=== PATIENT | male | born 1985 | race Hispanic/Latino ===

== ENCOUNTER 2017-01-07 05:14 | Emergency (ER) | payer BC, MEDICAID, OTHER ==
[~2017-01-07] VITALS: Ht 172.7 cm; Wt 90.7 kg
[~2017-01-07 05:14] MED LIST: ATIVAN1 MG ORAL; LORAZEPAM0.5 MG ORAL; NAPROSYN500 M1 ORAL; NEXIUM20 M1 ORAL; NEXIUM40 MG ORAL; OMEPRAZOLE20 M3 ORAL; XANAX0.25 MG ORAL
[2017-01-07] MEDS ORDERED: NKM (05:27)
[2017-01-07 05:30] VITALS: BP 114/81
--- NOTE | 2017-01-07 05:35 | Emergency Room Report ---
History of Present Illness General Chief Complaint: Eye Problems Source: Patient Present Illness HPI 31-year-old male no significant past medical history presenting with right eye tearing, redness, irritation. Complains of slight pain. No blurry vision. No thick purulent drainage. Denies any eye trauma denies any foreign body sensation in eye Allergies: Coded Allergies: No Known Allergies (Unverified , 12/11/12) Patient History Past Medical History: see triage record Past Surgical History: none Pertinent Family History: none Reviewed Nursing Documentation: PMH: Agreed, PSxH: Agreed Nursing Documentation-PMH Past Medical History: No Stated History Review of Systems All Other Systems: negative except mentioned in HPI Physical Exam Vital Signs Date Time Temp Pulse Resp B/P (MAP) Pulse Ox O2 Delivery O2 Flow Rate FiO2 01/07/17 05:22 97.5 69 18 114/81 96 Room Air Sp02 EP Interpretation: reviewed, normal General Appearance: normal inspection, well appearing, no apparent distress, alert, GCS 15, non-toxic Head: normocephalic, atraumatic Eyes: right eye other - Chemosis, scleral injection, no purulent drainage no foreign body, bilateral eye PERRL, bilateral eye EOMI ENT: normal ENT inspection, normal pharynx, normal voice, moist mucus membranes Neck: normal inspection, full range of motion, supple Respiratory: normal inspection, lungs clear, normal breath sounds, no respiratory distress, no retraction, no wheezing, speaking full sentences, chest symmetrical Cardiovascular #1: normal inspection, regular rate, rhythm, no edema, normal capillary refill Cardiovascular #2: 2+ radial (R), 2+ radial (L) Gastrointestinal: normal inspection, non tender, soft, non-distended, no guarding Genitourinary: no CVA tenderness Musculoskeletal: normal inspection, back normal, normal range of motion, non- tender Neurologic: normal inspection, alert, oriented x3, responsive, motor strength/ tone normal, sensory intact, normal gait, speech normal Psychiatric: normal inspection, judgement/insight normal, memory normal Skin: normal inspection, normal color, no rash, warm/dry, well hydrated, normal turgor Medical Decision Making Diagnostic Impression: Primary Impression: Viral conjunctivitis of right eye ER Course 31-year-old male with right eye redness, tearing DDX: Likely viral conjunctivitis Plan: None in emergency room Disposition: Patient is to be discharged to home. Patient is instructed to follow up with their primary care doctor within 5 days. Strict return precautions discussed with patient such as fever, chills, worsening/severe pain, nausea, vomiting, which may indicate severe illness. Patient verbalizes understanding and agrees with plan. Please note that this Emergency Department Report was dictated using [employer]ment[employer] tester technology software, occasionally this can lead to erroneous entry secondary to interpretation by the dictation equipment Last Vital Signs Date Time Temp Pulse Resp B/P (MAP) Pulse Ox O2 Delivery O2 Flow Rate FiO2 01/07/17 05:22 97.5 69 18 114/81 96 Room Air Disposition: HOME, SELF-CARE Condition: Stable Patient Instructions: Viral Conjunctivitis Marbella Mata M.D. Jan 07, 2017 05:35
[2017-01-07 05:38] VITALS: BP 114/81
== END 2017-01-07 05:38 | disposition home or self-care (01) ==
LOC: MERGE 05:26 → EMR 05:26
DX: B30.9 Viral conjunctivitis, unspecified (principal)
CPT/HCPCS: 99282

== ENCOUNTER 2018-10-02 18:32 | Inpatient (IN) | payer MEDICAID, MEDICARE, OTHER ==
[~2018-10-02] VITALS: Ht 170.2 cm; Wt 101.2 kg
[~2018-10-02 18:32] MED LIST changes: +NKM
[2018-10-02] MEDS ORDERED: Mylanta II UD 30ml ORAL ONE (18:45)
--- NOTE | 2018-10-02 18:45 | NUR ---
ED Nurse Note: Patient walked into ED c/o abdominal pain on the epigastric area with nausea since 09/30/18. Patient is alert awake x4 ambulatory, breathing unlabored and even. patient reports it is nothing like his GERD pain.
--- NOTE | 2018-10-02 18:53 | Emergency Room Report ---
History of Present Illness General Chief Complaint: Abdominal Pain Source: Medical Record Present Illness HPI 32-year-old male presents with right lower quadrant pain, periumbilical pain x2 days, nausea, no vomiting, no diarrhea, no dysuria, no fever/chills, he only endorses abdominal pain while eating, severity is moderate, no alleviating factors, pain is described as sharp/achy. Patient presents for evaluation Allergies: Coded Allergies: No Known Allergies (Unverified , 12/02/12) Patient History Past Medical History: see triage record Social History: Reports: smoking Reviewed Nursing Documentation: PMH: Agreed; PSxH: Agreed Nursing Documentation-PMH Past Medical History: No History, Except For Hx Gastrointestinal Problems: Yes - GERD Review of Systems Gastrointestinal: Reports: abdominal pain, nausea; Denies: diarrhea, vomiting All Other Systems: negative except mentioned in HPI Physical Exam Vital Signs Date Time Temp Pulse Resp B/P (MAP) Pulse Ox O2 Delivery O2 Flow Rate FiO2 10/02/18 18:39 98.2 58 18 135/83 (100) 95 Room Air Sp02 EP Interpretation: reviewed, normal General Appearance: alert, moderate distress Head: normocephalic, atraumatic Eyes: bilateral eye PERRL, bilateral eye EOMI ENT: uvula midline, moist mucus membranes Neck: supple, thyroid normal, supple/symm/no masses Respiratory: lungs clear, no respiratory distress, no retraction, no accessory muscle use Cardiovascular #1: normal peripheral pulses, regular rate, rhythm, no edema, no gallop, no murmur Gastrointestinal: no guarding, no rebound, tenderness - rlq McBurney's, tenderness to palpation moderate Musculoskeletal: normal inspection Neurologic: alert, oriented x3 Psychiatric: mood/affect normal Skin: no rash, warm/dry Medical Decision Making Diagnostic Impression: Primary Impression: Appendicitis, acute ER Course 32-year-old male presents with right lower quadrant pain concerning for appendicitis, will start antibiotics, surgeon notified Dr. Elizabeth He is unstable for transport, already dilated appendix, risk of perforation is high, with free fluid in pelvis spoke with transfer center, Dr. Salgado agrees with plan patient should stay admitted. Abx started, fluid started, patient will be admitted to Dr. Larkin 10:11pm Pain control with morphine and zofran Laboratory Tests Test 10/02/18 18:55 10/02/18 19:45 White Blood Count 15.8 K/UL (4.8-10.8) H Red Blood Count 4.89 M/UL (4.70-6.10) Hemoglobin 15.3 G/DL (14.2-18.0) Hematocrit 43.4 % (42.0-52.0) Mean Corpuscular Volume 89 FL (80-99) Mean Corpuscular Hemoglobin 31.2 PG (27.0-31.0) H Mean Corpuscular Hemoglobin Concent 35.2 G/DL (32.0-36.0) Red Cell Distribution Width 10.2 % (11.6-14.8) L Platelet Count 206 K/UL (150-450) Mean Platelet Volume 9.4 FL (6.5-10.1) Neutrophils (%) (Auto) 81.6 % (45.0-75.0) H Lymphocytes (%) (Auto) 11.3 % (20.0-45.0) L Monocytes (%) (Auto) 6.1 % (1.0-10.0) Eosinophils (%) (Auto) 0.4 % (0.0-3.0) Basophils (%) (Auto) 0.6 % (0.0-2.0) Sodium Level 136 MMOL/L (136-145) Potassium Level 3.3 MMOL/L (3.5-5.1) L Chloride Level 102 MMOL/L (98-107) Carbon Dioxide Level 25 MMOL/L (21-32) Anion Gap 9 mmol/L (5-15) Blood Urea Nitrogen 8 mg/dL (7-18) Creatinine 0.9 MG/DL (0.55-1.30) Estimate Glomerular Filtration Rate > 60 mL/min (>60) Glucose Level 116 MG/DL (74-106) H Calcium Level 8.5 MG/DL (8.5-10.1) Total Bilirubin 1.7 MG/DL (0.2-1.0) H Direct Bilirubin 0.2 MG/DL (0.0-0.3) Aspartate Amino Transferase (AST) 14 U/L (15-37) L Alanine Aminotransferase (ALT) 27 U/L (12-78) Alkaline Phosphatase 107 U/L (46-116) Total Protein 7.1 G/DL (6.4-8.2) Albumin 3.7 G/DL (3.4-5.0) Globulin 3.4 g/dL Albumin/Globulin Ratio 1.1 (1.0-2.7) Lipase 62 U/L (73-393) L Urine Color Brown Urine Appearance Clear Urine pH 5 (4.5-8.0) Urine Specific [place] 1.025 (1.005-1.035) Urine Protein 1+ (NEGATIVE) H Urine Glucose (UA) Negative (NEGATIVE) Urine Ketones 4+ (NEGATIVE) H Urine Blood Negative (NEGATIVE) Urine Nitrite Negative (NEGATIVE) Urine Bilirubin Negative (NEGATIVE) Urine Urobilinogen Normal MG/DL (0.0-1.0) Urine Leukocyte Esterase 1+ (NEGATIVE) H Urine RBC 0 /HPF (0 - 0) Urine WBC 0-2 /HPF (0 - 0) Urine Squamous Epithelial Cells None /LPF (NONE/OCC) Urine Bacteria Occasional /HPF (NONE) Urine Mucus Few /LPF (NONE/OCC) H CT/MRI/US Diagnostic Results CT/MRI/US Diagnostic Results : Imaging Test Ordered: CT Abdomen and Pelvis Impression acute appendicitis, 18 mm dilatation with moderate inflammation, mild pelvic free fluid Last Vital Signs Date Time Temp Pulse Resp B/P (MAP) Pulse Ox O2 Delivery O2 Flow Rate FiO2 10/02/18 18:39 98.2 58 18 135/83 (100) 95 Room Air Disposition: ADMITTED INPATIENT Condition: Stable Evan Domínguez MD Oct 02, 2018 18:53
[2018-10-02] MEDS ORDERED: Isovue-300 100ml vial INJ PRN (19:00)
--- NOTE | 2018-10-02 19:04 | NUR ---
HAND-OFF: Report given to DEE DALTON.
[2018-10-02 19:16] VITALS: BP 135/83
[2018-10-02 19:27] LABS: BASOPHILS % (AUTO) 0.6 % (0.0-2.0); EOSINOPHILS % (AUTO) 0.4 % (0.0-3.0); HEMATOCRIT 43.4 % (42.0-52.0); HEMOGLOBIN 15.3 G/DL (14.2-18.0); LYMPHOCYTES % (AUTO) 11.3 % (20.0-45.0); MEAN CORPUSCULAR VOLUME 89 FL (80-99); MONOCYTES % (AUTO) 6.1 % (1.0-10.0); NEUTROPHILS % (AUTO) 81.6 % (45.0-75.0); PLATELET COUNT 206 K/UL (150-450); RED BLOOD COUNT 4.89 M/UL (4.70-6.10); RED CELL DISTRIBUTION WIDTH 10.2 % (11.6-14.8); WHITE BLOOD COUNT 15.8 K/UL (4.8-10.8)
[2018-10-02 19:40] LABS: ANION GAP 9 mmol/L (5-15); BLOOD UREA NITROGEN 8 mg/dL (7-18); CALCIUM 8.5 MG/DL (8.5-10.1); CARBON DIOXIDE 25 MMOL/L (21-32); CHLORIDE 102 MMOL/L (98-107); CREATININE 0.9 MG/DL (0.55-1.30); POTASSIUM 3.3 MMOL/L (3.5-5.1); SODIUM 136 MMOL/L (136-145)
[2018-10-02 19:51] LABS: ALANINE AMINOTRANSFERASE 27 U/L (12-78); ALBUMIN 3.7 G/DL (3.4-5.0); ALBUMIN/GLOBULIN RATIO 1.1 (1.0-2.7); ALKALINE PHOSPHATASE 107 U/L (46-116); ASPARTATE AMINO TRANSFERASE 14 U/L (15-37); BILIRUBIN,TOTAL 1.7 MG/DL (0.2-1.0)
[2018-10-02 19:52] LABS: BILIRUBIN,DIRECT 0.2 MG/DL (0.0-0.3)
[2018-10-02 20:07] LABS: APPEARANCE,URINE CLEAR; BILIRUBIN, URINE NEGATIVE (NEGATIVE); COLOR,URINE BROWN; GLUCOSE, URINE (UA) NEGATIVE (NEGATIVE); KETONES,URINE 4+ (NEGATIVE); LEUKOCYTE ESTERASE ,URINE 1+ (NEGATIVE); NITRITE,URINE NEGATIVE (NEGATIVE); PH,URINE 5 (4.5-8.0); PROTEIN,URINE 1+ (NEGATIVE); UROBILINOGEN,URINE NORMAL MG/DL (0.0-1.0)
[2018-10-02 21:15] VITALS: BP 135/83
[2018-10-02] MEDS ORDERED: Piperacillin/Tazobactam 3.375 GM in NS 110 ML IVPB ONE (21:30)
[2018-10-02] MEDS ORDERED: Morphine Sulfate 4mg/ml Inj (IV USE ONLY) IVP ONE (22:15)
[2018-10-02 23:23] VITALS: BP 140/78
--- NOTE | 2018-10-02 23:23 | NUR ---
ED Nurse Note: Patient was admited to [facility] due to appendicitis. AAO x4, VSS at this time, skin is warm to touch. Patient was transfered to the unit via gurney, with all belongings.
[2018-10-03] VITALS (12 sets, daily range): BP systolic 97–128; BP diastolic 57–80
--- NOTE | 2018-10-03 | NUR ---
NURSE NOTES: Received report from KRYSTLE Pina. Patient transferred to be in room 408-2. Patient is awake, alert and verbally responsive. Able to make needs known. Respiration is even and unlabored . Skin is intact, warm and dry to touch. Abdomen is soft. IV site noted. Call light is at bedside. Will continue plan of care.
[2018-10-03] MEDS ORDERED: ALPRAZOLAM0.5 MG PO (00:17)
[2018-10-03] MEDS: Morphine Sulfate 2mg/ml Inj(IV/IM USE ONLY) IVP PRN ×3 (01:30→08:49)
[2018-10-03 06:42] LABS: HEMATOCRIT 44.9 % (42.0-52.0); HEMOGLOBIN 15.1 G/DL (14.2-18.0); MEAN CORPUSCULAR VOLUME 93 FL (80-99); PLATELET COUNT 200 K/UL (150-450); RED BLOOD COUNT 4.82 M/UL (4.70-6.10); RED CELL DISTRIBUTION WIDTH 10.9 % (11.6-14.8); WHITE BLOOD COUNT 16.9 K/UL (4.8-10.8)
[2018-10-03 06:49] LABS: ANION GAP 6 mmol/L (5-15); BLOOD UREA NITROGEN 6 mg/dL (7-18); CALCIUM 8.3 MG/DL (8.5-10.1); CARBON DIOXIDE 29 MMOL/L (21-32); CHLORIDE 102 MMOL/L (98-107); POTASSIUM 3.8 MMOL/L (3.5-5.1); SODIUM 137 MMOL/L (136-145)
--- NOTE | 2018-10-03 07:21 | NUR ---
HAND-OFF: Report given to KRYSTLE Echeverria.
--- NOTE | 2018-10-03 08:00 | NUR ---
NURSE NOTES: Received report form Will Moore pt a/a/o x 4 laying with no signs of distress or other issues at this time. pt's NPO due to this morning surgery. call light within reach, bed in lowest position. side rales up x2.
[2018-10-03] MEDS: Piperacillin/Tazobactam 3.375 GM in NS 110 ML IVPB SCH ×3 (08:45→22:05)
--- NOTE | 2018-10-03 09:19 | NUR ---
*-* INSURANCE *-* ALL CLINICALS AND REVIEWS HAVE BEEN FAXED TO: [employer] COORDINATOR: VANESSA P:[phone] F: [phone] REF# [id number]
[2018-10-03] MEDS ORDERED: Succinylcholine 20mg/ml 10ml vial ONE (10:10)
[2018-10-03] MEDS ORDERED: Zemuron 50mg/5ml Inj IV ONE (10:10)
--- NOTE | 2018-10-03 10:14 | Diagnostic Imaging Report ---
Indication: Abdominal pain Technique: Continuous helical transaxial imaging of the abdomen and pelvis was obtained from the lung bases to the pubic symphysis during intravenous contrast administration. Coronal 2-D reformats were also obtained. Study obtained in a Siemens sensation [address] Automatic Exposure Control was utilized. Total Dose length Product (DLP): 1017.[address] Dose Index Volume (CTDIvol): 16.45 mGy Comparison: None Findings: Minimal posterior basilar atelectasis demonstrated. Kidneys are unremarkable. There is no hydronephrosis. The gallbladder, liver and spleen, pancreas appear normal. There is no adrenal mass. Bowel gas pattern is nonobstructive. There is a moderate amount of soft tissue stranding of fat surrounding an enlarged appendix in the right lower quadrant of the abdomen just anterior to the right psoas muscle. The appendix measures up to 1.8 cm in diameter and shows ill-definition of the wall with some thickening and enhancement. There is an appendicolith at the base of the appendix. Inflammation tracks along the right hemipelvis. There is a trace amount of pelvic ascites present which is likely associated. IMPRESSION: Acute appendicitis as described above. No drainable abscess. Small hiatal hernia. Mild posterior basilar atelectasis. Critical value communication. Findings were conveyed to the emergency room Department at 21:16, 10/02/2018. The CT scanner at [facility] is accredited by the [employer] and the scans are performed using dose optimization techniques as appropriate to a performed exam including Automatic Exposure control.
--- NOTE | 2018-10-03 10:15 | History and Physical Report ---
DATE OF ADMISSION: 10/02/2018 REASON FOR ADMISSION: 1. Abdominal pain. 2. Appendicitis. HISTORY OF PRESENT ILLNESS: The patient is a pleasant 32-year-old gentleman who presented to the emergency room overnight complaining of right lower quadrant pain, periumbilical in nature for the last two days. No nausea, vomiting, or diarrhea. Just feeling slightly ill with abdominal pain with decreased appetite. He was noted to have acute appendicitis with 18 mm dilatation with and mild pelvic free fluid. As such, he was admitted for IV antibiotics and possible appendectomy. PAST MEDICAL HISTORY: 1. Anxiety. 2. GERD. PAST SURGICAL HISTORY: None. ALLERGIES: No known drug allergies. FAMILY HISTORY: Noncontributory. REVIEW OF SYSTEMS: NEUROLOGIC: The patient denies headache, change in vision, syncope, or presyncopal episodes. CARDIOVASCULAR: No current chest pain, palpitations, or angina. PULMONARY: No difficulty breathing, cough, or sputum. GASTROINTESTINAL/GENITOURINARY: The patient was having some abdominal pain. No nausea, vomiting, or diarrhea. ENDOCRINOLOGY: No night sweats, fevers, or chills. MUSCULOSKELETAL: The patient is feeling weak, tired, and fatigued. PHYSICAL EXAMINATION: VITAL SIGNS: Blood pressure 112/70, respiratory rate 16, pulse 52, and temperature 98.2. 96% oxygen saturation on room air. GENERAL: The patient is awake and alert, not in distress. HEENT: Extraocular muscles intact. No lymphadenopathy. Oropharyngeal mucosa is clear and dry. CARDIOVASCULAR: S1, S2. No rubs or gallops. PULMONARY: Clear to auscultation bilaterally. No rales, rhonchi or wheezes. ABDOMEN: Mild tenderness in the right lower quadrant with fair bowel sounds. EXTREMITIES: No edema. LABORATORY DATA: Labs dated 10/03/2018, sodium 137, potassium 3.8, creatinine 1. Glucose 146. Calcium 8.3. Lipase 62. White cell count 16.9, hemoglobin 15.1. ASSESSMENT AND PLAN: 1. Acute appendicitis. At this time, we will continue Zosyn and await appendectomy. Defer management to General Surgery. 2. Dehydration. We will continue IV fluids. 3. DVT prophylaxis with SCDs. Melvin Ford MD DR: YANE JOB#: [id number] CC:
[2018-10-03] MEDS ORDERED: fentaNYL 100 mcg/2 mL IV ONE (10:58)
[2018-10-03] MEDS ORDERED: Midazolam 2mg/2ml Inj ONE (10:58)
[2018-10-03] MEDS ORDERED: Lidocaine 1% MPF 10mg/ml 5ml ONE (10:59)
[2018-10-03] MEDS ORDERED: Propofol 200mg/20ml IV ONE (10:59)
--- NOTE | 2018-10-03 11:24 | Diagnostic Imaging Report ---
Indication: Chest pain Comparison: 04/26/2008 A single view chest radiograph was obtained. Findings: Cardiomediastinal appearance is within normal limits for age. The lungs are clear. Pulmonary vascularity is appropriate. The diaphragmatic contour is smooth and costophrenic angles are sharp. No pleural effusions are identified. The bones are unremarkable. Impression: No acute findings
[2018-10-03] MEDS ORDERED: NS Irrig 1000ml ONE (12:00)
[2018-10-03] MEDS ORDERED: Sterile Water Irrig 1000ml IRRIG ONE (12:00)
[2018-10-03] MEDS ORDERED: LR 1000ml ONE (12:00)
[2018-10-03] MEDS ORDERED: Glycopyrrolate 0.2mg/ml 1ml Vial ONE (12:07)
[2018-10-03] MEDS ORDERED: Neostigmine 1mg/ml 10ml Inj ONE (12:07)
[2018-10-03] MEDS ORDERED: Sodium Chloride 10ml vial INJ ONE (12:07)
[2018-10-03] MEDS ORDERED: Morphine Sulfate 10mg/ml Inj ONE (12:07)
--- NOTE | 2018-10-03 12:14 | Pre-Procedure Note/Attestation ---
Pre-Procedure Note/Attestation Complete Prior to Procedure Planned Procedure: not applicable Procedure Narrative: laparoscopic possible open appendectomy Indications for Procedure Pre-Operative Diagnosis: acute appendicitis Attestation I attest that I discussed the nature of the procedure; its benefits; risks and complications; and alternatives (and the risks and benefits of such alternatives ), prior to the procedure, with the patient (or the patient's legal outside industrial sales representative). I attest that, if there was a reasonable possibility of needing a blood transfusion, the patient (or the patient's legal outside industrial sales representative) was given the [facility] standardized written summary, pursuant to the [place] Blood Safety Act ([place] Health and Safety Code # 1645, as amended). I attest that I re-evaluated the patient just prior to the surgery and that there has been no change in the patient's H&P, except as documented below: Salazar Elizabeth Oct 03, 2018 12:14
--- NOTE | 2018-10-03 12:16 | Consultation ---
History of Present Illness General Date patient seen: Oct 03, 2018 Reason for Hospitalization: Abdominal Pain Present Illness HPI This is a 32-year-old male who presented to [facility] emergency department complaining of worsening right lower quadrant abdominal pain for 3 days. Patient states pain initially began on Tuesday as very mild discomfort and is since become focal right lower quadrant sharp pain. Pain associated with nausea and emesis. In emergency department identified to have a leukocytosis and CT scan consistent with acute appendicitis. Surgery called to evaluate. Patient seen,, patient evaluated, chart reviewed. Allergies: Coded Allergies: No Known Allergies (Unverified , 12/02/12) Medication History Scheduled Alprazolam* (Xanax*), 0.25 MG PO BID, (Reported) Esomeprazole Magnesium (Nexium), 40 MG ORAL DAILY Esomeprazole Magnesium (Nexium), 20 MG ORAL DAILY, (Reported) Naproxen* (Naprosyn*), 500 MG ORAL TWICE A DAY No Known Medications* (NKM - No Known Medications*), 0 ., (Reported) Omeprazole (Omeprazole), 20 MG ORAL DAILY Scheduled PRN Lorazepam* (Ativan*), 1 MG ORAL THREE TIMES A DAY PRN for For Anxiety Lorazepam* (Lorazepam*), 0.5 MG ORAL DAILY PRN for For Anxiety, (Reported) Patient History History Provided By: Patient Healthcare decision maker Resuscitation status Full Code Advanced Directive on File Past Medical/Surgical History Past Medical/Surgical History: (1) Anxiety attack (2) Acute gastritis (3) foreign body sensation (4) chocking episode, resolved (5) Hematuria (6) Gastritis (7) Panic attack (8) ETOH abuse (9) Viral conjunctivitis of right eye (10) Appendicitis, acute Review of Systems Review of Symptoms General ROS: no weight loss or fever Psychological ROS: no depression or mood changes, no memory loss Ophthalmic ROS: no visual changes or eye irritation ENT ROS: no nasal congestion, hearing loss, dizziness Allergy and Immunology ROS: no allergic symptoms or urticaria Hematological and Lymphatic ROS: no swollen glands, unusual bleeding or bruising Endocrine ROS: no polyuria, polydipsia, weight changes, temperature intolerance Respiratory ROS: no cough, shortness of breath, or wheezing Cardiovascular ROS: no chest pain or dyspnea on exertion Gastrointestinal ROS: denies abdominal pain, no bright red blood in stool. Musculoskeletal ROS: no myalgias or arthralgias Neurological ROS: no TIA or stroke symptoms Dermatological ROS: no new or changing skin lesions, rashes or pruritis Physical Exam Physical Exam General appearance: alert, cooperative, no distress, appears stated age Head: Normocephalic, without obvious abnormality, atraumatic Eyes: conjunctivae/corneas clear. PERRL, EOM's intact. Fundi benign Throat: Lips, mucosa, and tongue normal. Teeth and gums normal Neck: supple, symmetrical, trachea midline, no adenopathy, thyroid: not enlarged, symmetric, no tenderness/mass/nodules, no carotid bruit and no JVD Lungs: clear to auscultation bilaterally Heart: regular rate and rhythm, S1, S2 normal, no murmur, click, rub or gallop Abdomen: soft, RLQ tender. Bowel sounds normal. No masses, no organomegaly Extremities: extremities normal, atraumatic, no cyanosis or edema Pulses: 2+ and symmetric Skin: Skin color, texture, turgor normal. No rashes or lesions Neurologic: Grossly normal Last 24 Hour Vital Signs Date Time Temp Pulse Resp B/P (MAP) Pulse Ox O2 Delivery O2 Flow Rate FiO2 10/03/18 09:19 98.2 10/03/18 08:00 98.3 58 18 122/62 (82) 96 10/03/18 04:00 98.2 52 16 112/70 (84) 96 10/03/18 00:13 Room Air 10/03/18 00:00 97.6 55 16 123/76 (92) 95 10/02/18 23:23 98.2 87 16 135/83 96 Room Air 10/02/18 23:23 98.2 87 18 140/78 98 Room Air 10/02/18 23:04 98.2 10/02/18 21:15 98.2 87 16 135/83 96 Room Air 10/02/18 19:16 98.2 89 18 135/83 95 Room Air 10/02/18 19:02 58 18 Room Air 10/02/18 18:39 98.2 58 18 135/83 (100) 95 Room Air Intake and Output 10/02/18 10/03/18 19:00 07:00 Intake Total 375 ml Balance 375 ml Intake IV Total 375 ml # Voids 3 Laboratory Tests Test 10/02/18 18:55 10/02/18 19:45 10/03/18 05:00 White Blood Count 15.8 K/UL (4.8-10.8) H 16.9 K/UL (4.8-10.8) H Red Blood Count 4.89 M/UL (4.70-6.10) 4.82 M/UL (4.70-6.10) Hemoglobin 15.3 G/DL (14.2-18.0) 15.1 G/DL (14.2-18.0) Hematocrit 43.4 % (42.0-52.0) 44.9 % (42.0-52.0) Mean Corpuscular Volume 89 FL (80-99) 93 FL (80-99) Mean Corpuscular Hemoglobin 31.2 PG (27.0-31.0) H 31.3 PG (27.0-31.0) H Mean Corpuscular Hemoglobin Concent 35.2 G/DL (32.0-36.0) 33.6 G/DL (32.0-36.0) Red Cell Distribution Width 10.2 % (11.6-14.8) L 10.9 % (11.6-14.8) L Platelet Count 206 K/UL (150-450) 200 K/UL (150-450) Mean Platelet Volume 9.4 FL (6.5-10.1) 9.0 FL (6.5-10.1) Neutrophils (%) (Auto) 81.6 % (45.0-75.0) H % (45.0-75.0) Lymphocytes (%) (Auto) 11.3 % (20.0-45.0) L % (20.0-45.0) Monocytes (%) (Auto) 6.1 % (1.0-10.0) % (1.0-10.0) Eosinophils (%) (Auto) 0.4 % (0.0-3.0) % (0.0-3.0) Basophils (%) (Auto) 0.6 % (0.0-2.0) % (0.0-2.0) Prothrombin Time 10.9 SEC (9.30-11.50) Prothromb Time International Ratio 1.0 (0.9-1.1) Activated Partial Thromboplast Time 33 SEC (23-33) Sodium Level 136 MMOL/L (136-145) 137 MMOL/L (136-145) Potassium Level 3.3 MMOL/L (3.5-5.1) L 3.8 MMOL/L (3.5-5.1) Chloride Level 102 MMOL/L (98-107) 102 MMOL/L (98-107) Carbon Dioxide Level 25 MMOL/L (21-32) 29 MMOL/L (21-32) Anion Gap 9 mmol/L (5-15) 6 mmol/L (5-15) Blood Urea Nitrogen 8 mg/dL (7-18) 6 mg/dL (7-18) L Creatinine 0.9 MG/DL (0.55-1.30) 1.0 MG/DL (0.55-1.30) Estimat Glomerular Filtration Rate > 60 mL/min (>60) > 60 mL/min (>60) Glucose Level 116 MG/DL (74-106) H 146 MG/DL (74-106) H Calcium Level 8.5 MG/DL (8.5-10.1) 8.3 MG/DL (8.5-10.1) L Total Bilirubin 1.7 MG/DL (0.2-1.0) H Direct Bilirubin 0.2 MG/DL (0.0-0.3) Aspartate Amino Transf (AST/SGOT) 14 U/L (15-37) L Alanine Aminotransferase (ALT/SGPT) 27 U/L (12-78) Alkaline Phosphatase 107 U/L (46-116) Total Protein 7.1 G/DL (6.4-8.2) Albumin 3.7 G/DL (3.4-5.0) Globulin 3.4 g/dL Albumin/Globulin Ratio 1.1 (1.0-2.7) Lipase 62 U/L (73-393) L Urine Color Brown Urine Appearance Clear Urine pH 5 (4.5-8.0) Urine Specific [place] 1.025 (1.005-1.035) Urine Protein 1+ (NEGATIVE) H Urine Glucose (UA) Negative (NEGATIVE) Urine Ketones 4+ (NEGATIVE) H Urine Blood Negative (NEGATIVE) Urine Nitrite Negative (NEGATIVE) Urine Bilirubin Negative (NEGATIVE) Urine Urobilinogen Normal MG/DL (0.0-1.0) Urine Leukocyte Esterase 1+ (NEGATIVE) H Urine RBC 0 /HPF (0 - 0) Urine WBC 0-2 /HPF (0 - 0) Urine Squamous Epithelial Cells None /LPF (NONE/OCC) Urine Bacteria Occasional /HPF (NONE) Urine Mucus Few /LPF (NONE/OCC) H Differential Total Cells Counted 100 Neutrophils % (Manual) 92 % (45-75) H Lymphocytes % (Manual) 2 % (20-45) L Monocytes % (Manual) 5 % (1-10) Eosinophils % (Manual) 0 % (0-3) Basophils % (Manual) 0 % (0-2) Band Neutrophils 1 % (0-8) Platelet Estimate Adequate Platelet Morphology Normal Height (Feet): 5 Height (Inches): 7.00 Weight (Pounds): 224 Medications Current Medications Medications (Trade) Dose Ordered Sig/Li Route PRN Reason Start Time Stop Time Status Last Admin Dose Admin Dextrose (Dextrose 50%) 25 ml Q30M PRN IV Hypoglycemia 10/02/18 22:15 11/01/18 22:14 Dextrose (Dextrose 50%) 50 ml Q30M PRN IV Hypoglycemia 10/02/18 22:15 11/01/18 22:14 Dextrose/ Electrolytes 1,000 ml @ 75 mls/hr [id number] IV 10/02/18 23:13 11/01/18 23:12 10/03/18 00:32 Morphine Sulfate (Morphine Sulfate) 1 mg Q3HR PRN IVP For Pain 10/02/18 22:15 10/09/18 22:14 10/03/18 08:49 Ondansetron HCl (Zofran) 4 mg Q6H PRN IVP Nausea & Vomiting 10/02/18 22:15 11/01/18 22:14 10/03/18 08:49 Piperacillin Sod/ Tazobactam Sod 3.375 gm/Sodium Chloride 110 ml @ 27.5 mls/hr EVERY 8 HOURS IVPB 10/03/18 08:00 10/08/18 07:59 10/03/18 08:45 Assessment/Plan Problem List: (1) Appendicitis, acute Assessment & Plan: 32-year-old male with acute appendicitis. Afebrile, Stable , leukocytosis. CT scan with acute appendicitis consistent. N.p.o., IV fluids , IV antibiotics. Consent. 2 OR today for lap scopic versus possible open appendectomy ICD Codes: K35.80 - Unspecified acute appendicitis SNOMED: [id number] Salazar Elizabeth Oct 03, 2018 12:16
[2018-10-03] MEDS ORDERED: Surgicel 4in x 8in TOPIC ONE (12:45)
[2018-10-03] MEDS ORDERED: LR 1000ml 1,000 ML IVLG SCH (13:10)
--- NOTE | 2018-10-03 13:10 | Anethesia Preoperative Eval ---
Anesthesia Pre-op PMH/ROS General Date of Evaluation: Oct 03, 2018 Time of Evaluation: 11:50 Anesthesiologist: Lee ASA Score: ASA 2 Mallampati Score Class I : Soft palate, uvula, fauces, pillars visible Class II: Soft palate, uvula, fauces visible Class III: Soft palate, base of uvula visible Class IV: Only hard plate visible Mallampati Classification: Class III Surgeon: Mara Diagnosis: Acute appedicitis Surgical Procedure: Laparoscopic appendectomy Anesthesia History: none Social History: alcohol use - h/o heavy abuse Family History: no anesthesia problems Allergies: Coded Allergies: No Known Allergies (Unverified , 12/02/12) Medications: see eMAR Patient NPO?: Yes NPO Date: Oct 02, 2018 NPO Time: 1200 Past Medical History Cardiovascular: Denies: HTN, CAD, NC, valve dz, arrhythmia, other Pulmonary: Denies: asthma, COPD, ERNA, other Gastrointestinal/Genitourinary: Reports: GERD; Denies: CRI, ESRD, other Neurologic/Psychiatric: Denies: dementia, CVA, depression/anxiety, TIA, other Endocrine: Denies: DM, hypothyroidism, steroids, other HEENT: Denies: cataract (L), cataract (R), glaucoma, TUSCARORA (L), TUSCARORA (R), other Hematology/Immune: Denies: anemia, DVT, bleeding disorder, other Musculoskeletal/Integumentary: Denies: OA, RA, DJD, DDD, edema, other Other: obesity PMH Narrative: admitted for acute abdominal pain - appendicitis scheduled for Sx PSxH Narrative: none Anesthesia Pre-op Phys. Exam Physician Exam Last Vital Signs Date Time Temp Pulse Resp B/P (MAP) Pulse Ox O2 Delivery O2 Flow Rate FiO2 10/03/18 09:19 98.2 10/03/18 08:00 58 18 122/62 (82) 96 10/03/18 00:13 Room Air Constitutional: NAD Neurologic: CN 2-12 intact Cardiovascular: RRR, no M/R/G Respiratory: CTA Gastrointestinal: other - tender on palpation Airway Exam Mallampati Score: Class III MO: limited Neck: short ROM: full Teeth: intact Dentures: no upper, no lower Anesthesia Pre-op A/P Labs Hematology Test 10/02/18 18:55 10/03/18 05:00 White Blood Count 15.8 K/UL (4.8-10.8) H 16.9 K/UL (4.8-10.8) H Red Blood Count 4.89 M/UL (4.70-6.10) 4.82 M/UL (4.70-6.10) Hemoglobin 15.3 G/DL (14.2-18.0) 15.1 G/DL (14.2-18.0) Hematocrit 43.4 % (42.0-52.0) 44.9 % (42.0-52.0) Mean Corpuscular Volume 89 FL (80-99) 93 FL (80-99) Mean Corpuscular Hemoglobin 31.2 PG (27.0-31.0) H 31.3 PG (27.0-31.0) H Mean Corpuscular Hemoglobin Concent 35.2 G/DL (32.0-36.0) 33.6 G/DL (32.0-36.0) Red Cell Distribution Width 10.2 % (11.6-14.8) L 10.9 % (11.6-14.8) L Platelet Count 206 K/UL (150-450) 200 K/UL (150-450) Mean Platelet Volume 9.4 FL (6.5-10.1) 9.0 FL (6.5-10.1) Neutrophils (%) (Auto) 81.6 % (45.0-75.0) H % (45.0-75.0) Lymphocytes (%) (Auto) 11.3 % (20.0-45.0) L % (20.0-45.0) Monocytes (%) (Auto) 6.1 % (1.0-10.0) % (1.0-10.0) Eosinophils (%) (Auto) 0.4 % (0.0-3.0) % (0.0-3.0) Basophils (%) (Auto) 0.6 % (0.0-2.0) % (0.0-2.0) Differential Total Cells Counted 100 Neutrophils % (Manual) 92 % (45-75) H Lymphocytes % (Manual) 2 % (20-45) L Monocytes % (Manual) 5 % (1-10) Eosinophils % (Manual) 0 % (0-3) Basophils % (Manual) 0 % (0-2) Band Neutrophils 1 % (0-8) Platelet Estimate Adequate Platelet Morphology Normal Coagulation Test 10/02/18 18:55 Prothrombin Time 10.9 SEC (9.30-11.50) Prothromb Time International Ratio 1.0 (0.9-1.1) Activated Partial Thromboplast Time 33 SEC (23-33) Chemistry Test 10/02/18 18:55 10/03/18 05:00 Sodium Level 136 MMOL/L (136-145) 137 MMOL/L (136-145) Potassium Level 3.3 MMOL/L (3.5-5.1) L 3.8 MMOL/L (3.5-5.1) Chloride Level 102 MMOL/L (98-107) 102 MMOL/L (98-107) Carbon Dioxide Level 25 MMOL/L (21-32) 29 MMOL/L (21-32) Anion Gap 9 mmol/L (5-15) 6 mmol/L (5-15) Blood Urea Nitrogen 8 mg/dL (7-18) 6 mg/dL (7-18) L Creatinine 0.9 MG/DL (0.55-1.30) 1.0 MG/DL (0.55-1.30) Estimat Glomerular Filtration Rate > 60 mL/min (>60) > 60 mL/min (>60) Glucose Level 116 MG/DL (74-106) H 146 MG/DL (74-106) H Calcium Level 8.5 MG/DL (8.5-10.1) 8.3 MG/DL (8.5-10.1) L Total Bilirubin 1.7 MG/DL (0.2-1.0) H Direct Bilirubin 0.2 MG/DL (0.0-0.3) Aspartate Amino Transf (AST/SGOT) 14 U/L (15-37) L Alanine Aminotransferase (ALT/SGPT) 27 U/L (12-78) Alkaline Phosphatase 107 U/L (46-116) Total Protein 7.1 G/DL (6.4-8.2) Albumin 3.7 G/DL (3.4-5.0) Globulin 3.4 g/dL Albumin/Globulin Ratio 1.1 (1.0-2.7) Lipase 62 U/L (73-393) L Risk Assessment & Plan Assessment: ASA 2E Plan: GA with ETT Status Change Before Surgery: No Pre-Antibiotics Drug: as scheduled Omi Howard MD Oct 03, 2018 13:10
[2018-10-03] MEDS ORDERED: Hydromorphone 0.5mg/0.5ml inj IVP PRN ×2 (13:15→14:00)
[2018-10-03] MEDS ORDERED: Meperidine 50mg/ml Inj(FOR RIGORS ONLY) IV PRN (13:15)
[2018-10-03] MEDS ORDERED: Midazolam 2mg/2ml Inj IVP PRN (13:15)
[2018-10-03] MEDS ORDERED: Ketorolac 30mg Inj IV PRN (13:15)
[2018-10-03] MEDS ORDERED: DiphenhydrAMINE 50mg/ml Inj IVP PRN (13:15)
[2018-10-03] MEDS ORDERED: Metoclopramide 10mg/2ml Inj IVP PRN ×2 (13:15→14:00)
--- NOTE | 2018-10-03 13:52 | Brief Operative Note ---
Immediate Post Operative Note Operative Note Pre-op Diagnosis: acute appendicitis Procedure: laparoscopic appendectomy Post-op Diagnosis: acute necrotic appendicitis Surgeon: isatu Anesthesiologist: sherita Anesthesia: general, local Specimen: yes Complications: none Condition: stable Fluids: see records Estimated Blood Loss: volume - 25 Drains: none Implant(s) used?: No Salazar Elizabeth Oct 03, 2018 13:52
[2018-10-03] MEDS ORDERED: HYDROmorphone 1mg/ml Carpuject IVP PRN (14:00)
[2018-10-03] MEDS ORDERED: Sennosides 8.6mg tab ORAL PRN (14:00)
[2018-10-03] MEDS ORDERED: Milk of Magnesia 30ml Ud ORAL PRN (14:00)
--- NOTE | 2018-10-03 14:04 | Immediate Post-Op Evaluation ---
Immediate Post-Op Evalulation Immediate Post-Op Evalulation Procedure: Laparoscopic appendectomy Date of Evaluation: Oct 03, 2018 Time of Evaluation: 14:03 IV Fluids: 800 Blood Products: none Estimated Blood Loss: 50 Urinary Output: none Blood Pressure Systolic: 123 Blood Pressure Diastolic: 84 Pulse Rate: 86 Respiratory Rate: 22 O2 Sat by Pulse Oximetry: 98 Temperature (Fahrenheit): 97.8 Pain Score (1-10): 2 Nausea: No Vomiting: No Complications none Patient Status: reacts, patent, extubated, none Hydration Status: adequate Omi Howard MD Oct 03, 2018 14:04
--- NOTE | 2018-10-03 15:00 | NUR ---
NURSE NOTES: Received report from Simran RN, pt a/a/o x4 laying in bed with no signs of distress or other issues. pain 0/10. surgical incisions dry and intact. IV right AC gauge#20 running LR@100ml/hr. call light within reach. bed in lowest position. side rales up x2. I will f/u as needed.
--- NOTE | 2018-10-03 16:19 | NUR ---
CASE MANAGEMENT:REVIEW 32 YR OLD MALE PRESENTED TO OUR ER CC: ABDOMINAL PAIN W/NAUSEA SINCE TUESDAY SI: ACUTE APPENDICITIS 98.2 58 18 135/83 95% ON RA WBC+15.8 IS: IV ZOFRAN GI COCKTAIL 1L NS BOLUS IV ZOSYN CT ABD/PELVIS : TO MED/SURG UNIT 3 [facility] 10/03/18 SI: ACUTE NECROTIC APPENDICITIS 97.4 68 16 98/59 96% ON 3L/NC WBC+16.9 IS: TO SURGERY: LAPAROSCOPIC APPENDECTOMY IV MORPHINE Q3HRS PRN IV ZOSYN Q8HRS IVF@75/HR : MED/SURG STATUS DCP: FROM HOME INTERQUAL CRITERIA MET
[2018-10-03] MEDS: Docusate 100mg cap ORAL SCH (18:13)
--- NOTE | 2018-10-03 19:45 | Operative Note - Dictated ---
DATE OF OPERATION: 10/03/2018 PREOPERATIVE DIAGNOSIS: Acute appendicitis. POSTOPERATIVE DIAGNOSIS: Acute necrotic appendicitis. OPERATION PERFORMED: Laparoscopic appendectomy. ATTENDING SURGEON: Salazar Elizabeth M.D. GREENSKEEPER HEAD: None. ANESTHESIOLOGIST: Omi Howard M.D. 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 ESTIMATED BLOOD LOSS: 25 mL. IV FLUIDS: Please see anesthesia records. COMPLICATIONS: None. DRAINS: None. SPECIMENS: Appendix sent to pathology for review. COUNTS: Sponge and needle count correct x2. WOUND CLASSIFICATION: Class 3. IV ANTIBIOTICS: The patient is on scheduled IV antibiotics of Zosyn. INDICATIONS FOR PROCEDURE: This 32-year-old male presented to the emergency department of [facility] complaining of worsening right lower quadrant abdominal pain with nausea and emesis. The patient had a leukocytosis and CT scan consistent with acute nonperforated appendicitis. Surgery was indicated and recommended. Risks, benefits, and alternatives were discussed with the patient in detail, who expressed understanding and consented for surgery. OPERATIVE NOTE: The patient was taken to the operating room and placed on the operating table in supine position with left arm tucked. All bony prominences well padded. SCDs were placed. Preoperative time-out was taken identifying the patient, procedure, operative staff and surgical staff. General anesthesia was induced and the patient was intubated. The abdomen was clipped, prepped, and draped in standard surgical fashion. A local anesthetic was infiltrated in all skin incision and port sites throughout the procedure for the patient's comfort. An infraumbilical incision was made and carried down to the fascia, which was elevated and incised. Entry into the abdomen was obtained using open Doug technique. A 12 mm Doug trocar was inserted and abdomen was insufflated to 12 to 15 mmHg. Laparoscope was inserted and the abdomen was inspected. There was a fair amount of serous free fluid identified in the abdomen and the right lower quadrant was inflammatory changes identified. Secondary trocars were placed under direct visualization beginning with a left lower quadrant 12 mm trocar followed by a suprapubic 5 mm trocar. No injury from secondary trocar placement noted. The fluid was suctioned approximately 400 to 500 mL of serous fluid was evacuated from the pelvis and abdomen. Following this, the patient was placed in Trendelenburg with left side down. The cecum was identified and the tenia was followed to the confluence where the base of the appendix was noted. The remainder of the appendix identified in the right lower quadrant and the appendix was noted to be clearly nearly if not necrotic. Upon initially grasping any portion of the appendix, there was evacuation of fecal purulent material, approximately 4 mL or 5 mL, which was medially evacuated. The appendix was slowly dissected out as well as thickened hard shortened mesoappendix. In dissecting out the mesoappendix, the appendiceal artery was identified and clipped. Following this, the appendix taken down to the base where the base of the appendix at the cecum was identified. A laparoscopic linear stapler was used and the base of the appendix was divided from the cecum. The appendix was placed in endoscopic retrieval bag. There was a little bit of oozing at the base of the appendix and laparoscopic clips were used to obtain hemostasis. Following this, the base of the appendix and mesoappendix were evaluated and noted to have appropriate clip placements and staple lines were viable and hemostatic. The pelvis and right lower quadrant were irrigated and suctioned with sterile saline. Following this, the remainder of the abdomen was inspected and no other abnormalities were noted, all fluid was suctioned out. The appendix is removed from the umbilical trocar site followed by removal of the trocars. The abdomen was desufflated. The umbilical trocar site fascia was reapproximated using a [id number] #0 Vicryl suture. The remaining skin incisions were cleansed and reapproximated using 4-0 Monocryl subcuticular interrupted sutures. Steri-Strips and benzoin followed by dressings were applied. The patient tolerated the procedure well, was extubated, and taken to the postanesthetic care unit in stable condition. Salazar Elizabeth M.D. DR: ALY JOB#: [id number] CC:
--- NOTE | 2018-10-03 19:52 | NUR ---
HAND-OFF: Report given to Kalpana CBX OPERATOR pt in stable condition.
--- NOTE | 2018-10-03 19:52 | NUR ---
NURSE NOTES:Patient received from MAULIK Muller Patient Laying in bed A/A/OX4. RAC g#20 [id number] kcl 20 meq at 75cc/ hr infusing well. abdominal surgical site with 3 lap site dressing in left side with little stained .Patient denies any pain at this time . no s/s of distress noted . patient uses urinals and voided freely yellow urine . P atient on SCDS in placed . is at bedside .patient tolerated well safety /fall precautions . call light within reach . bed in low position at all times .Bed alarm on .will continue to monitor .
[2018-10-03] MEDS: HYDROcodone/Acetamin 10/325 tab ORAL PRN (20:58)
[2018-10-04] VITALS: BP 107/57
[2018-10-04] MEDS: HYDROcodone/Acetamin 10/325 tab ORAL PRN ×2 (01:25→08:34)
[2018-10-04 04:00] VITALS: BP 108/68
[2018-10-04 05:14] LABS: BASOPHILS % (AUTO) 0.4 % (0.0-2.0); EOSINOPHILS % (AUTO) 0.1 % (0.0-3.0); HEMATOCRIT 43.6 % (42.0-52.0); HEMOGLOBIN 14.5 G/DL (14.2-18.0); LYMPHOCYTES % (AUTO) 9.5 % (20.0-45.0); MEAN CORPUSCULAR VOLUME 94 FL (80-99); MONOCYTES % (AUTO) 8.5 % (1.0-10.0); NEUTROPHILS % (AUTO) 81.5 % (45.0-75.0); PLATELET COUNT 189 K/UL (150-450); RED BLOOD COUNT 4.66 M/UL (4.70-6.10); RED CELL DISTRIBUTION WIDTH 11.1 % (11.6-14.8); WHITE BLOOD COUNT 12.3 K/UL (4.8-10.8)
[2018-10-04] MEDS: Piperacillin/Tazobactam 3.375 GM in NS 110 ML IVPB SCH ×3 (05:32→21:17)
[2018-10-04 05:33] LABS: ANION GAP 4 mmol/L (5-15); BLOOD UREA NITROGEN 9 mg/dL (7-18); CALCIUM 8.2 MG/DL (8.5-10.1); CARBON DIOXIDE 31 MMOL/L (21-32); CHLORIDE 101 MMOL/L (98-107); CREATININE 1.4 MG/DL (0.55-1.30); POTASSIUM 4.3 MMOL/L (3.5-5.1); SODIUM 136 MMOL/L (136-145)
--- NOTE | 2018-10-04 07:20 | NUR ---
HAND-OFF: Report given to chelsey MullerPatient on stable condition
[2018-10-04 08:00] VITALS: BP 97/66
--- NOTE | 2018-10-04 08:00 | NUR ---
NURSE NOTES: Received report from Kalpana DALTON, pt a/a/o x4 laying in bed with no signs of distress or other issues at this time. surgical incisions are stain. IV on the right AC gauge#20 running D5NS+20mEq@75ml/hr. pt is on a clear liquid diet, he stated having some nausea after eating. call light within reach, bed in lowest position. side rales up x2. I will f/u as needed.
[2018-10-04] MEDS: Docusate 100mg cap ORAL SCH ×2 (08:33→17:09)
--- NOTE | 2018-10-04 08:35 | 48 Hour Post Anesthesia Eval ---
Post Anesthesia Evaluation Procedure: Laparoscopic appendectomy Date of Evaluation: Oct 04, 2018 Time of Evaluation: 06:30 Blood Pressure Systolic: 108 0: 68 Pulse Rate: 76 Respiratory Rate: 18 Temperature (Fahrenheit): 98.7 O2 Sat by Pulse Oximetry: 95 Airway: patent Nausea: No Vomiting: No Hydration Status: adequate Cardiopulmonary Status: at baseline Mental Status/LOC: patient returned to baseline Post-Anesthesia Complications: 0 Follow-up care needed: N/A - further care as per primary team Leslie Murphy MD Oct 04, 2018 08:35
--- NOTE | 2018-10-04 08:49 | Nephrology Progress Note ---
Assessment/Plan Assessment/Plan: A/P 1) CHAZ due to AGUSTIN and NSAIDS. Cr 1.4 - IVFs, avoid NSAIDS and Abx for appendicitis 2) Appendicitis, post appy - DC once cleared by surgery 3) Dehydration- IVFs Subjective Date patient seen: Oct 04, 2018 Time patient seen: 08:47 ROS Limited/Unobtainable: No Allergies: Coded Allergies: No Known Allergies (Unverified , 12/02/12) Subjective Patient abdominal pain improved Objective Last 24 Hour Vital Signs Date Time Temp Pulse Resp B/P (MAP) Pulse Ox O2 Delivery O2 Flow Rate FiO2 10/04/18 08:35 76 18 95 10/04/18 08:00 98.9 73 18 97/66 (76) 93 10/04/18 04:00 98.7 76 18 108/68 (81) 95 10/04/18 01:55 98.6 10/04/18 00:00 98.6 74 17 107/57 (74) 95 10/03/18 21:00 Room Air 10/03/18 20:00 99.5 81 18 100/65 (77) 95 10/03/18 16:00 98.2 73 17 102/68 (79) 95 10/03/18 14:56 97.4 68 16 98/59 96 Nasal Cannula 3 10/03/18 14:40 64 17 97/57 96 Nasal Cannula 3 10/03/18 14:30 68 16 99/57 96 Nasal Cannula 3 10/03/18 14:20 72 18 101/62 97 Nasal Cannula 3 10/03/18 14:10 82 20 108/64 99 Nasal Cannula 3 10/03/18 14:05 84 21 113/70 99 Simple Mask 6 10/03/18 14:04 86 22 98 10/03/18 13:58 98.1 79 24 128/80 99 Simple Mask 6 10/03/18 09:19 98.2 10/03/18 09:00 Room Air Intake and Output 10/03/18 10/04/18 19:00 07:00 Intake Total 1750 ml 1552.5 ml Output Total 50 ml Balance 1700 ml 1552.5 ml Intake Oral 800 ml 1080 ml IV Total 950 ml 472.5 ml Output Estimated Blood Loss 50 ml # Voids 5 Laboratory Tests 10/04/18 04:50: White Blood Count 12.3H, Red Blood Count 4.66L, Hemoglobin 14.5, Hematocrit 43.6 , Mean Corpuscular Volume 94, Mean Corpuscular Hemoglobin 31.2H, Mean Corpuscular Hemoglobin Concent 33.4, Red Cell Distribution Width 11.1L, Platelet Count 189, Mean Platelet Volume 8.4, Neutrophils (%) (Auto) 81.5H, Lymphocytes (%) (Auto) 9.5L, Monocytes (%) (Auto) 8.5, Eosinophils (%) (Auto) 0.1, Basophils (%) (Auto) 0.4, Sodium Level 136, Potassium Level 4.3, Chloride Level 101, Carbon Dioxide Level 31, Anion Gap 4L, Blood Urea Nitrogen 9, Creatinine 1.4H, Estimat Glomerular Filtration Rate 58.4, Glucose Level 126H, Calcium Level 8.2L Height (Feet): 5 Height (Inches): 7.00 Weight (Pounds): 223 General Appearance: no apparent distress, alert EENT: normal ENT inspection Neck: normal alignment, supple Cardiovascular: normal rate, regular rhythm Respiratory/Chest: lungs clear, normal breath sounds Abdomen: non tender, soft Edema: no edema noted Arm (L), no edema noted Arm (R), no edema noted Leg (L), no edema noted Leg (R), no edema noted Pedal (L), no edema noted Pedal (R), no edema noted Generalized Melvin Ford MD Oct 04, 2018 08:49
--- NOTE | 2018-10-04 09:00 | NUR ---
PT EVALUATION NOTE Patient seen for initial evaluation, see complete evaluation for details. Patient demonstrates independence with all functional mobility without assistive device. Skilled inpatient PT intervention not warranted, patient discharged from PT. Patient is cleared to ambulate in hallway with nursing supervision, Juwan DALTON notified. Addendum: 10/04/18 at 1037 by RAHAT WHITE PT Amended: Links added.
[2018-10-04 12:00] VITALS: BP 94/62
[2018-10-04] MEDS: HYDROcodone/Acetamin 5/325 tab ORAL PRN (13:04)
--- NOTE | 2018-10-04 13:35 | NUR ---
CASE MANAGEMENT:REVIEW 10/04/18 SI: ACUTE NECROTIC APPENDICITIS...POD #1 S/P LAPAROSCOPIC APPENDECTOMY 98.9 74 17 94/62 97% ON RA WBC+12.3 CR+1.4 IS: IV ZOSYN Q8HRS IVF@75/HR IV MORPHINE Q3HRS PRN IVF@75/HR : MED/SURG STATUS DCP: FROM HOME PLAN: CLEAR LIQUID DIET
--- NOTE | 2018-10-04 14:35 | CDS Physician Query ---
Clarification is required for compliance, coding accuracy, and to reflect severity of illness for this patient Dear Dr. Melvin Ford Date: 10/04/2018 [place] Operator/CDS Name: Maria Luisa Womack Clinical Documentation states: Op note: Acute necrotic appendicitis...appendix was noted to be clearly nearly if not necrotic. Upon initially grasping any portion of the appendix, there was evacuation of fecal purulent material, approximately 4 mL or 5 mL, which was medially evacuated WBC on admission: 15.8 Treatment: IV pip-tazo Please respond to the following question: Is there a diagnosis specific to these symptoms or values? If so please state below. PHYSICIAN RESPONSE: [x] Localized Peritonitis with abscess [] Localized Peritonitis without abscess [] Generalized Peritonitis with abscess [] Generalized Peritonitis without abscess [] Other [x] Clinically Undetermined Present on Admission: [x] Yes [] No [] Clinically Undetermined Physician signature Date Please also document in your Progress Notes and/or Discharge Summary and indicate if the condition was present on admission. MTDD
--- NOTE | 2018-10-04 15:13 | NUR ---
*-* INSURANCE *-* ALL CLINICALS AND REVIEWS HAVE BEEN FAXED TO: [employer] COORDINATOR: VANESSA P:[phone] F: [phone] REF# [id number]
--- NOTE | 2018-10-04 15:25 | Surgery Progress Note ---
Surgery Progress Note Subjective Procedure Performed laparoscopic appendectomy Additional Comments doing well pain incisional ambulatory tolerating diet wbc decreasing Objective Last 24 Hour Vital Signs Date Time Temp Pulse Resp B/P (MAP) Pulse Ox O2 Delivery O2 Flow Rate FiO2 10/04/18 13:34 98.9 10/04/18 12:00 98.9 74 17 94/62 (73) 97 10/04/18 09:04 98.7 10/04/18 09:00 Room Air 10/04/18 08:35 76 18 95 10/04/18 08:00 98.9 73 18 97/66 (76) 93 10/04/18 04:00 98.7 76 18 108/68 (81) 95 10/04/18 00:00 98.6 74 17 107/57 (74) 95 10/03/18 21:00 Room Air 10/03/18 20:00 99.5 81 18 100/65 (77) 95 10/03/18 16:00 98.2 73 17 102/68 (79) 95 I&O Intake and Output 10/03/18 10/04/18 19:00 07:00 Intake Total 1750 ml 1552.5 ml Output Total 50 ml Balance 1700 ml 1552.5 ml Intake Oral 800 ml 1080 ml IV Total 950 ml 472.5 ml Output Estimated Blood Loss 50 ml # Voids 5 Dressing: saturated Wound: clean Drains: none Cardiovascular: RSR Respiratory: clear Abdomen: soft, tenderness - incisional , non-distended, decreased bowel sounds Extremities: no edema, no tenderness, no cyanosis Laboratory Tests Test 10/04/18 04:50 White Blood Count 12.3 K/UL (4.8-10.8) H Red Blood Count 4.66 M/UL (4.70-6.10) L Hemoglobin 14.5 G/DL (14.2-18.0) Hematocrit 43.6 % (42.0-52.0) Mean Corpuscular Volume 94 FL (80-99) Mean Corpuscular Hemoglobin 31.2 PG (27.0-31.0) H Mean Corpuscular Hemoglobin Concent 33.4 G/DL (32.0-36.0) Red Cell Distribution Width 11.1 % (11.6-14.8) L Platelet Count 189 K/UL (150-450) Mean Platelet Volume 8.4 FL (6.5-10.1) Neutrophils (%) (Auto) 81.5 % (45.0-75.0) H Lymphocytes (%) (Auto) 9.5 % (20.0-45.0) L Monocytes (%) (Auto) 8.5 % (1.0-10.0) Eosinophils (%) (Auto) 0.1 % (0.0-3.0) Basophils (%) (Auto) 0.4 % (0.0-2.0) Sodium Level 136 MMOL/L (136-145) Potassium Level 4.3 MMOL/L (3.5-5.1) Chloride Level 101 MMOL/L (98-107) Carbon Dioxide Level 31 MMOL/L (21-32) Anion Gap 4 mmol/L (5-15) L Blood Urea Nitrogen 9 mg/dL (7-18) Creatinine 1.4 MG/DL (0.55-1.30) H Estimat Glomerular Filtration Rate 58.4 mL/min (>60) Glucose Level 126 MG/DL (74-106) H Calcium Level 8.2 MG/DL (8.5-10.1) L Assessment Post-op Diagnosis acute necrotic appendicitis Plan Problems: (1) Appendicitis, acute Assessment & Plan: 32-year-old male with acute appendicitis. s/p lap appy necrotic appendix noted not ready for d/c clears adv as tolerated iv abx AM labs IS ambulate dressings prn thank you Salazar Elizabeth Oct 04, 2018 15:25
[2018-10-04 16:00] VITALS: BP 107/70
--- NOTE | 2018-10-04 19:30 | NUR ---
NURSE NOTES: Received report & pt from KRYSTLE Echeverria. Pt lying in bed, a&ox4, in room air. No s/s of acute distress & c/o 2/10 pain at this time. Surgical dressing x3 C/D/I. IV site intact with IVF running as ordered. Bed in lowest position, call light within reach. Will continue to monitor.
--- NOTE | 2018-10-04 19:45 | NUR ---
HAND-OFF: Report given to Kavitha DALTON, pt in stable condition. - during my shift pt still complain of some nausea but not vomiting.
[2018-10-04 20:00] VITALS: BP 109/64
[2018-10-05] VITALS: BP 110/64
[2018-10-05] MEDS: HYDROcodone/Acetamin 5/325 tab ORAL PRN ×5 (00:54→23:33)
[2018-10-05 04:00] VITALS: BP 113/60
[2018-10-05] MEDS: Piperacillin/Tazobactam 3.375 GM in NS 110 ML IVPB SCH ×3 (05:05→21:34)
[2018-10-05 05:28] LABS: BASOPHILS % (AUTO) 0.3 % (0.0-2.0); EOSINOPHILS % (AUTO) 0.1 % (0.0-3.0); HEMATOCRIT 43.1 % (42.0-52.0); HEMOGLOBIN 14.4 G/DL (14.2-18.0); LYMPHOCYTES % (AUTO) 8.4 % (20.0-45.0); MEAN CORPUSCULAR VOLUME 92 FL (80-99); MONOCYTES % (AUTO) 8.1 % (1.0-10.0); NEUTROPHILS % (AUTO) 83.2 % (45.0-75.0); PLATELET COUNT 218 K/UL (150-450); RED BLOOD COUNT 4.67 M/UL (4.70-6.10); RED CELL DISTRIBUTION WIDTH 10.8 % (11.6-14.8); WHITE BLOOD COUNT 15.2 K/UL (4.8-10.8)
[2018-10-05 05:44] LABS: ANION GAP 5 mmol/L (5-15); BLOOD UREA NITROGEN 8 mg/dL (7-18); CALCIUM 8.5 MG/DL (8.5-10.1); CARBON DIOXIDE 29 MMOL/L (21-32); CHLORIDE 100 MMOL/L (98-107); SODIUM 134 MMOL/L (136-145)
--- NOTE | 2018-10-05 07:12 | NUR ---
HAND-OFF: Report given to KRYSTLE Vallejo. Rounds done. Pt in stable condition.
--- NOTE | 2018-10-05 07:38 | Nephrology Progress Note ---
Assessment/Plan Assessment/Plan: A/P 1) CHAZ due to AGUSTIN and NSAIDS. Resolved. Cr 1 - DC IVFs, avoid NSAIDS 2) Appendicitis, post appy - DC once cleared by surgery - WBC 15 on Abx 3) Dehydration- DC IVFs Subjective Date patient seen: Oct 05, 2018 Time patient seen: 07:37 ROS Limited/Unobtainable: No Allergies: Coded Allergies: No Known Allergies (Unverified , 12/02/12) Subjective Patient abdominal pain improved and he is now eating Objective Last 24 Hour Vital Signs Date Time Temp Pulse Resp B/P (MAP) Pulse Ox O2 Delivery O2 Flow Rate FiO2 10/05/18 04:00 98.7 79 18 113/60 (77) 91 10/05/18 00:00 98.8 82 17 110/64 (79) 92 10/04/18 21:00 Room Air 10/04/18 20:00 98.5 82 17 109/64 (79) 92 10/04/18 16:00 98.0 77 16 107/70 (82) 97 10/04/18 13:34 98.9 10/04/18 12:00 98.9 74 17 94/62 (73) 97 10/04/18 09:04 98.7 10/04/18 09:00 Room Air 10/04/18 08:35 76 18 95 10/04/18 08:00 98.9 73 18 97/66 (76) 93 Intake and Output 10/04/18 10/05/18 19:00 07:00 Intake Total 2352.5 ml 630 ml Balance 2352.5 ml 630 ml Intake Oral 1500 ml 480 ml IV Total 852.5 ml 150 ml # Voids 3 4 Laboratory Tests 10/05/18 04:45: White Blood Count 15.2H, Red Blood Count 4.67L, Hemoglobin 14.4, Hematocrit 43.1 , Mean Corpuscular Volume 92, Mean Corpuscular Hemoglobin 30.9, Mean Corpuscular Hemoglobin Concent 33.5, Red Cell Distribution Width 10.8L, Platelet Count 218, Mean Platelet Volume 8.4, Neutrophils (%) (Auto) 83.2H, Lymphocytes (%) (Auto) 8.4L, Monocytes (%) (Auto) 8.1, Eosinophils (%) (Auto) 0.1, Basophils (%) (Auto) 0.3, Sodium Level 134L, Potassium Level 4.0, Chloride Level 100, Carbon Dioxide Level 29, Anion Gap 5, Blood Urea Nitrogen 8, Creatinine 1.0, Estimat Glomerular Filtration Rate > 60, Glucose Level 111H, Calcium Level 8.5 Height (Feet): 5 Height (Inches): 7.00 Weight (Pounds): 223 General Appearance: no apparent distress, alert EENT: normal ENT inspection Neck: normal alignment, supple Cardiovascular: normal rate, regular rhythm Abdomen: soft, tender Edema: no edema noted Arm (L), no edema noted Arm (R), no edema noted Leg (L), no edema noted Leg (R), no edema noted Pedal (L), no edema noted Pedal (R), no edema noted Generalized Melvin Ford MD Oct 05, 2018 07:38
--- NOTE | 2018-10-05 07:46 | NUR ---
NURSE NOTES: Received report from KRYSTLE Plummer. Rounding done with outgoing nurse. Pt a/o x 4, in bed. No respiratory distress noted. c/o abdominal pain as 310. Rt AC is patent, IV fluid is running. Dressing of belly button area is stain. Bed in lowest position, call light within reach. Will continue to monitor.
[2018-10-05 08:00] VITALS: BP 103/63
[2018-10-05] MEDS: Docusate 100mg cap ORAL SCH ×2 (09:08→17:40)
--- NOTE | 2018-10-05 10:52 | Surgery Progress Note ---
Surgery Progress Note Subjective Procedure Performed laparoscopic appendectomy Additional Comments afebrile, HD stable states mildly better today but still with pain and nausea leukocytosis 15k path with micro perf Objective Last 24 Hour Vital Signs Date Time Temp Pulse Resp B/P (MAP) Pulse Ox O2 Delivery O2 Flow Rate FiO2 10/05/18 08:00 98.0 74 17 103/63 (76) 93 10/05/18 04:00 98.7 79 18 113/60 (77) 91 10/05/18 00:00 98.8 82 17 110/64 (79) 92 10/04/18 21:00 Room Air 10/04/18 20:00 98.5 82 17 109/64 (79) 92 10/04/18 16:00 98.0 77 16 107/70 (82) 97 10/04/18 13:34 98.9 10/04/18 12:00 98.9 74 17 94/62 (73) 97 I&O Intake and Output 10/04/18 10/05/18 19:00 07:00 Intake Total 2352.5 ml 630 ml Balance 2352.5 ml 630 ml Intake Oral 1500 ml 480 ml IV Total 852.5 ml 150 ml # Voids 3 4 Dressing: dry Wound: clean Cardiovascular: RSR Respiratory: clear Abdomen: soft, distended, tenderness, present bowel sounds Extremities: no edema, no tenderness, no cyanosis Laboratory Tests Test 10/05/18 04:45 White Blood Count 15.2 K/UL (4.8-10.8) H Red Blood Count 4.67 M/UL (4.70-6.10) L Hemoglobin 14.4 G/DL (14.2-18.0) Hematocrit 43.1 % (42.0-52.0) Mean Corpuscular Volume 92 FL (80-99) Mean Corpuscular Hemoglobin 30.9 PG (27.0-31.0) Mean Corpuscular Hemoglobin Concent 33.5 G/DL (32.0-36.0) Red Cell Distribution Width 10.8 % (11.6-14.8) L Platelet Count 218 K/UL (150-450) Mean Platelet Volume 8.4 FL (6.5-10.1) Neutrophils (%) (Auto) 83.2 % (45.0-75.0) H Lymphocytes (%) (Auto) 8.4 % (20.0-45.0) L Monocytes (%) (Auto) 8.1 % (1.0-10.0) Eosinophils (%) (Auto) 0.1 % (0.0-3.0) Basophils (%) (Auto) 0.3 % (0.0-2.0) Sodium Level 134 MMOL/L (136-145) L Potassium Level 4.0 MMOL/L (3.5-5.1) Chloride Level 100 MMOL/L (98-107) Carbon Dioxide Level 29 MMOL/L (21-32) Anion Gap 5 mmol/L (5-15) Blood Urea Nitrogen 8 mg/dL (7-18) Creatinine 1.0 MG/DL (0.55-1.30) Estimat Glomerular Filtration Rate > 60 mL/min (>60) Glucose Level 111 MG/DL (74-106) H Calcium Level 8.5 MG/DL (8.5-10.1) Assessment Post-op Diagnosis acute necrotic appendicitis Plan Problems: (1) Appendicitis, acute Assessment & Plan: 32-year-old male with acute appendicitis. s/p lap appy necrotic appendix noted not ready for d/c - wbc elevated path with perf nausea clears adv as tolerated iv abx AM labs IS ambulate dressings prn thank you Salazar Elizabeth Oct 05, 2018 10:52
--- NOTE | 2018-10-05 11:18 | NUR ---
DISCHARGE FOLLOW UP [facility] NURSE VENETIAN BLIND MACHINE OPERATOR, VANESSA, HAS SET UP OUTPATIENT FOLLOW UP POST HOSPITALIZATION APPOINTMENT: Oct @ 3:15 PM AT:[facility] AT [address] [facility] [id number] PER VANESSA PATIENT'S PHYSICIAN IS NOT AVAILABLE AT THE [facility] SITE IF PATIENT CANNOT KEEP THIS APPOINTMENT HE NEEDS TO CALL VANESSA @ T: [phone]
--- NOTE | 2018-10-05 11:23 | NUR ---
CASE MANAGEMENT:REVIEW 10/05/18 SI: ACUTE NECROTIC APPENDICITIS...POD #2 S/P LAPAROSCOPIC APPENDECTOMY 98.0 74 17 103/63 93% ON RA WBC-15.2 IS: IV ZOSYN Q8HRS IVF@75/HR IV MORPHINE Q3HRS PRN COLACE PO BID NORCO PO Q4HRS PRN IV REGLAN Q6HRS PRN : MED/SURG STATUS DCP: FROM HOME PLAN: NOT TOLERATING CLEAR LIQUID DIET DO NOT ADVANCE DIET DISCHARGE PLANNING [facility] NURSE RESOURCE ANALYST, VANESSA, HAS SET UP OUTPATIENT FOLLOW UP POST HOSPITALIZATION APPOINTMENT: Oct @ 3:15 PM AT: [facility] [place] [id number] [place] [id number] PER VANESSA PATIENT'S PHYSICIAN IS NOT AVAILABLE AT THE [facility] SITE IF PATIENT CANNOT KEEP THIS APPOINTMENT HE NEEDS TO CALL VANESSA @ T: [phone]
[2018-10-05 12:00] VITALS: BP 107/65
--- NOTE | 2018-10-05 14:39 | NUR ---
*-* INSURANCE *-* ALL CLINICALS AND REVIEWS HAVE BEEN FAXED TO: [facility] COURTNEY COORDINATOR: VANESSA P:[phone] F: [phone] REF# [id number]
[2018-10-05 16:00] VITALS: BP 109/66
--- NOTE | 2018-10-05 19:37 | NUR ---
HAND-OFF: Report given to KRYSTLE Plummer.
--- NOTE | 2018-10-05 19:38 | NUR ---
NURSE NOTES: Received report & pt from KRYSTLE Vallejo. Pt lying in bed, a&ox4, in room air. No s/s of acute distress & c/o 2/10 pain at this time. Surgical dressing x3 C/D/I. IV site intact with IVF running as ordered. Still no BM per pt. Bed in lowest position, call light within reach. Will continue to monitor.
[2018-10-05 20:00] VITALS: BP 109/60
[2018-10-06] VITALS: BP 103/63
[2018-10-06 04:00] VITALS: BP 106/61
[2018-10-06] MEDS: Piperacillin/Tazobactam 3.375 GM in NS 110 ML IVPB SCH (05:22)
--- NOTE | 2018-10-06 05:26 | NUR ---
NURSE NOTES: Pt states he's passing a little bit of gas. Still no BM. Will continue to monitor.
[2018-10-06 05:45] LABS: BASOPHILS % (AUTO) 0.9 % (0.0-2.0); EOSINOPHILS % (AUTO) 0.3 % (0.0-3.0); HEMOGLOBIN 14.7 G/DL (14.2-18.0); LYMPHOCYTES % (AUTO) 8.6 % (20.0-45.0); MEAN CORPUSCULAR VOLUME 91 FL (80-99); MONOCYTES % (AUTO) 7.8 % (1.0-10.0); NEUTROPHILS % (AUTO) 82.4 % (45.0-75.0); PLATELET COUNT 266 K/UL (150-450); RED BLOOD COUNT 4.72 M/UL (4.70-6.10); RED CELL DISTRIBUTION WIDTH 11.2 % (11.6-14.8); WHITE BLOOD COUNT 14.9 K/UL (4.8-10.8)
--- NOTE | 2018-10-06 07:23 | NUR ---
HAND-OFF: Report given to KRYSTLE Vallejo. Pt in stable condition. Rounds done.
--- NOTE | 2018-10-06 07:53 | NUR ---
NURSE NOTES: Received report from KRYSTLE Plummer. Pt in bed, c/o abdominal pain as 04/16. Dressing is C/D/I. Encouraged pt to eating and ambulating. Will continue to monitor.
[2018-10-06 08:00] VITALS: BP 110/69
[2018-10-06] MEDS: Docusate 100mg cap ORAL SCH (08:12)
[2018-10-06] MEDS: HYDROcodone/Acetamin 5/325 tab ORAL PRN (08:12)
--- NOTE | 2018-10-06 08:44 | Nephrology Progress Note ---
Assessment/Plan Assessment/Plan: A/P 1) CHAZ - Resolved. Cr 1 2) Appendicitis, post appy - DC once cleared by surgery today - WBC improved 3) Dehydration- resolved Subjective Date patient seen: Oct 06, 2018 Time patient seen: 08:43 ROS Limited/Unobtainable: No Allergies: Coded Allergies: No Known Allergies (Unverified , 12/02/12) Subjective Patient eating. Some abdominal pain persists Objective Last 24 Hour Vital Signs Date Time Temp Pulse Resp B/P (MAP) Pulse Ox O2 Delivery O2 Flow Rate FiO2 10/06/18 04:00 98.6 80 16 106/61 (76) 93 10/06/18 00:00 97.7 72 18 103/63 (76) 93 10/05/18 21:00 Room Air 10/05/18 20:00 98.9 75 18 109/60 (76) 94 10/05/18 16:00 98.5 78 18 109/66 (80) 93 10/05/18 12:00 98.2 72 17 107/65 (79) 95 10/05/18 09:00 Room Air Intake and Output 10/05/18 10/06/18 19:00 07:00 Intake Total 110.0 ml 700 ml Balance 110.0 ml 700 ml Intake Oral 700 ml IV Total 110.0 ml # Voids 1 Laboratory Tests 10/06/18 05:00: White Blood Count 14.9H, Red Blood Count 4.72, Hemoglobin 14.7, Hematocrit 43.0 , Mean Corpuscular Volume 91, Mean Corpuscular Hemoglobin 31.1H, Mean Corpuscular Hemoglobin Concent 34.2, Red Cell Distribution Width 11.2L, Platelet Count 266, Mean Platelet Volume 7.7, Neutrophils (%) (Auto) 82.4H, Lymphocytes (%) (Auto) 8.6L, Monocytes (%) (Auto) 7.8, Eosinophils (%) (Auto) 0.3, Basophils (%) (Auto) 0.9 Height (Feet): 5 Height (Inches): 7.00 Weight (Pounds): 223 General Appearance: no apparent distress EENT: normal ENT inspection Neck: normal alignment, supple Cardiovascular: normal rate, regular rhythm Respiratory/Chest: lungs clear, normal breath sounds Abdomen: non tender, soft Edema: no edema noted Arm (L), no edema noted Arm (R), no edema noted Leg (L), no edema noted Leg (R), no edema noted Pedal (L), no edema noted Pedal (R), no edema noted Generalized Melvin Ford MD Oct 06, 2018 08:44
[2018-10-06] MEDS ORDERED: ACETAMINOPHEN-1 EAC1 ORAL (10:17)
[2018-10-06] MEDS ORDERED: METRONIDAZOLE500 MG ORAL (10:18)
[2018-10-06] MEDS ORDERED: AUGMENTIN 875-1 EAC1 ORAL (10:18)
--- NOTE | 2018-10-06 11:24 | NUR ---
NURSE NOTES: Dr. Elizabeth came and ok to d/c home with full liquid diet.
[2018-10-06] MEDS ORDERED: NS 275ml ONE (11:34)
--- NOTE | 2018-10-06 11:55 | NUR ---
NURSE NOTES: Discharge instruction was given. Belongings checked with pt and got sign. Discharge medication was given to pt. IV line was removed. Patient discharged in stable condition.
--- NOTE | 2018-10-06 15:10 | NUR ---
*-* INSURANCE *-* ALL CLINICALS AND REVIEWS HAVE BEEN FAXED TO: [facility] COURTNEY COORDINATOR: VANESSA P:[phone] F: [phone] REF# [id number]
--- NOTE | 2018-10-07 15:07 | Cardiology Report ---
APPROVED REPORT EKG Measurement Heart [id number] Sinus bradycardia Otherwise normal ECG
--- NOTE | 2018-10-07 17:01 | Discharge Summary ---
Discharge Summary Discharge Summary _ DATE OF ADMISSION: 10/03/2018 DATE OF DISCHARGE: 10/06/2018 DISCHARGED BY: Dr. Melvin Ford ASSEMBLER ADJUSTER: Dr. Salazar Elizabeth BRIEF HOSPITAL COURSE: Patient is a pleasant 32-year-old gentleman who presented to the emergency room due to complaints of right lower quadrant pain, periumbilical in nature for the past 2 days. There was no nausea, vomiting or diarrhea. Patient was feeling ill with abdominal pain and decreased appetite. On evaluation at the ED, vital signs were stable. Patient was afebrile. Blood work showed WBC elevated to 16. Hemoglobin and hematocrit were stable. Sodium was low at 3.3. Total bilirubin elevated to 1.7. Direct bilirubin was normal. LFTs were normal. Lipase normal. Urinalysis showed +1 leukocyte esterase, 0- 2 urine WBC, negative nitrite, +4 ketones, +1 protein. Chest x-ray did not show any acute findings. CT of the abdomen and pelvis showed evidence of acute appendicitis. He was given IV hydration. He was started on Zosyn. He was then admitted for acute appendicitis. He was placed on n.p.o. He was continued on IV hydration. Surgeon was consulted. Consent was obtained for laparoscopic possible open appendectomy. Patient was then taken to the OR. He underwent laparoscopic appendectomy. Appendix was noted to be necrotic. He tolerated procedure well and was taken to postanesthetic care unit in stable condition. Postoperatively, he was given pain management. He was started on clear liquid. WBC down trended. There was increase in creatinine to 1.4 that responded to IVF. Creatinine eventually normalized. Diet was advanced. WBC down trended. Patient was afebrile. He was tolerating diet well. Pathology showed acute appendicitis with periappendicitis and microscopic perforation. He was cleared for discharge to continue p.o. antibiotics as outpatient. FINAL DIAGNOSES: Acute appendicitis status post laparoscopic appendectomy Localized peritonitis with abscess, clinically undetermined, present on admission Acute kidney injury Dehydration, resolved DISPOSITION: Patient was discharged home. DISCHARGE MEDICATIONS: Refer to Discharge Medication List. DISCHARGE INSTRUCTIONS: Follow-up in a week. I have been assigned to complete a discharge summary on this account, I was not involved with the patient's management.--MOHINDER Tiwari Jacqueline Robles NP Oct 07, 2018 17:01
== END 2018-10-06 11:35 | disposition home or self-care (01) | DRG 339 ==
LOC: EMR 19:13 → 3E 22:00 → EDBEDREQ 22:20
PROC: 0DTJ4ZZ Resection of Appendix, Percutaneous Endoscopic Approach (ICD-10-PCS; principal; 2018-10-03 11:30)
DX: K35.33 Acute appendicitis with perforation, localized peritonitis, and gangrene, with abscess (principal); N17.9 Acute kidney failure, unspecified; E86.0 Dehydration; K21.9 Gastro-esophageal reflux disease without esophagitis; F41.9 Anxiety disorder, unspecified
CPT/HCPCS: 36415; 71045; 74177; 80048; 80053; 81003; 82248; 83690; 85007; 85025; 85610; 85730; 93005; 94003; 94150; 96361; 96374; 99285; J2250; J2405; J2710; J2765

== ENCOUNTER 2018-10-09 02:10 | Inpatient (IN) | payer OTHER ==
--- NOTE | 2018-10-06 16:52 | NUR ---
*-* INSURANCE *-* ALL AVAILABLE CLINICALS AHVE BEEN FAXED TO: [facility]:JACOB Vega: [phone]
[~2018-10-09] VITALS: Ht 167.6 cm; Wt 95.4 kg
[2018-10-09] VITALS (8 sets, daily range): BP systolic 109–132; BP diastolic 68–82
[~2018-10-09 02:10] MED LIST changes: +ACETAMINOPHEN-1 EAC1 ORAL; +ALPRAZOLAM0.5 MG PO; +AUGMENTIN 875-1 EAC1 ORAL; +METRONIDAZOLE500 MG ORAL
--- NOTE | 2018-10-09 02:29 | Emergency Room Report ---
History of Present Illness General Chief Complaint: Abdominal Pain Source: Patient Present Illness HPI Is a 32-year-old male who was discharged from the hospital recently for acute appendicitis. He had laparoscopic appendectomy. He was doing well until today. He started having abdominal pain with nausea vomiting diarrhea. Vomiting was clear initially and then now bilious. Diarrhea is watery. Now he has diffuse pain 10 out of 10. Unable to keep anything down. No fever chills. No radiation. Pain is diffuse and sharp and crampy in nature. Allergies: Coded Allergies: No Known Allergies (Unverified , 12/02/12) Patient History Past Medical History: see triage record, old chart reviewed Past Surgical History: appy Pertinent Family History: none Social History: Denies: smoking Immunizations: other Reviewed Nursing Documentation: PMH: Agreed; PSxH: Agreed Nursing Documentation-PMH Past Medical History: No Stated History Hx Cancer: No Hx Gastrointestinal Problems: Yes Hx Neurological Problems: No Review of Systems Eye: Denies: eye pain, blurred vision ENT: Denies: ear pain, nose congestion, throat swelling Respiratory: Denies: cough, shortness of breath Cardiovascular: Denies: chest pain, palpitations Gastrointestinal: Reports: abdominal pain, diarrhea, nausea, vomiting Musculoskeletal: Denies: back pain, joint pain Skin: Denies: rash Neurological: Denies: headache, numbness Endocrine: Denies: increased thirst, increased urine Hematologic/Lymphatic: Denies: easy bruising All Other Systems: negative except mentioned in HPI Physical Exam Vital Signs Date Time Temp Pulse Resp B/P (MAP) Pulse Ox O2 Delivery O2 Flow Rate FiO2 10/09/18 02:16 97.9 98 16 127/82 (97) 92 Room Air Vitals normal Sp02 EP Interpretation: reviewed, normal General Appearance: well appearing, no apparent distress, alert Head: normocephalic, atraumatic Eyes: bilateral eye PERRL, bilateral eye EOMI ENT: hearing grossly normal, normal pharynx Neck: full range of motion, supple, no meningismus Respiratory: chest non-tender, lungs clear, normal breath sounds Cardiovascular #1: regular rate, rhythm, no murmur Gastrointestinal: no mass, no organomegaly, no bruit, non-distended, tenderness - Diffuse tenderness, other - Surgical site clean., decreased bowel sounds Musculoskeletal: back normal, gait/station normal, normal range of motion Psychiatric: mood/affect normal Medical Decision Making Diagnostic Impression: Primary Impression: SBO (small bowel obstruction) Additional Impressions: Aspiration pneumonia Qualified Codes: J69.0 - Pneumonitis due to inhalation of food and vomit UTI (urinary tract infection) Qualified Codes: N30.00 - Acute cystitis without hematuria ER Course Patient presents with abdominal pain with nausea and vomiting. He has evidence of a small bowel obstruction also with possible aspiration pneumonia in the left lower lobe. He is mildly hypoxic. IV fluids given. NG tube. Antibiotics given. I discussed case with Dr. French who accepted pt for transfer. Pt will be admitted here since pt cant be transferred in a timely manner. I contacted Dr. Liu for admission and Dr. Elizabeth as surgical consult. Lab Results Impression Labs with leukocytosis Rhythm Strip Diag. Results EP Interpretation: yes Rate: 60 Rhythm: NSR, no PVC's, no ectopy CT/MRI/US Diagnostic Results CT/MRI/US Diagnostic Results : Imaging Test Ordered: CT abdomen and pelvis Impression Read by radiologist. Atelectasis/aspiration in the left lower lobe. Small bowel obstruction with transition point in the right lower quadrant. Last Vital Signs Date Time Temp Pulse Resp B/P (MAP) Pulse Ox O2 Delivery O2 Flow Rate FiO2 10/09/18 02:16 97.9 98 16 127/82 (97) 92 Room Air Status: improved Disposition: ADMITTED INPATIENT Condition: Serious Bob Hua MD Oct 09, 2018 02:29
[2018-10-09] MEDS ORDERED: Morphine Sulfate 4mg/ml Inj (IV USE ONLY) IVP ONE (02:30)
--- NOTE | 2018-10-09 02:40 | NUR ---
ER Nurse Note: Pt came from home c/o abd pain associated with n/v/d since 10/08. Pt stated he had a laparoscopic appendectomy one week ago and was d/c from [facility] but no s/s until yesterday. Bowel sounds heard in all quad. 10/10 pain. Will continue to montior.
[2018-10-09 03:02] LABS: MEAN CORPUSCULAR VOLUME 90 FL (80-99); PLATELET COUNT 459 K/UL (150-450); RED BLOOD COUNT 6.24 M/UL (4.70-6.10); RED CELL DISTRIBUTION WIDTH 10.7 % (11.6-14.8)
[2018-10-09 03:07] LABS: HEMOGLOBIN 19.1 G/DL (14.2-18.0); WHITE BLOOD COUNT 22.2 K/UL (4.8-10.8)
[2018-10-09 03:19] LABS: ALANINE AMINOTRANSFERASE 21 U/L (12-78); ALBUMIN 3.1 G/DL (3.4-5.0); ALBUMIN/GLOBULIN RATIO 0.6 (1.0-2.7); ALKALINE PHOSPHATASE 153 U/L (46-116); ANION GAP 16 mmol/L (5-15); ASPARTATE AMINO TRANSFERASE 17 U/L (15-37); BLOOD UREA NITROGEN 19 mg/dL (7-18); CALCIUM 9.8 MG/DL (8.5-10.1); CARBON DIOXIDE 25 MMOL/L (21-32); CHLORIDE 94 MMOL/L (98-107); POTASSIUM 3.2 MMOL/L (3.5-5.1); SODIUM 135 MMOL/L (136-145)
[2018-10-09 03:23] LABS: BILIRUBIN,DIRECT 0.7 MG/DL (0.0-0.3)
[2018-10-09 03:28] LABS: BILIRUBIN, URINE 2+ (NEGATIVE); GLUCOSE, URINE (UA) NEGATIVE (NEGATIVE); KETONES,URINE 4+ (NEGATIVE); LEUKOCYTE ESTERASE ,URINE 1+ (NEGATIVE); NITRITE,URINE NEGATIVE (NEGATIVE); PH,URINE 6 (4.5-8.0); PROTEIN,URINE 3+ (NEGATIVE); UROBILINOGEN,URINE 4 MG/DL (0.0-1.0)
[2018-10-09 03:40] LABS: APPEARANCE,URINE SLIGHTLY CLOUDY; COLOR,URINE YELLOW
--- NOTE | 2018-10-09 03:50 | Diagnostic Imaging Report ---
Indication: Abdominal pain Technique: Continuous helical transaxial imaging of the abdomen and pelvis was obtained from the lung bases to the pubic symphysis. No intravenous contrast was administered. Coronal 2-D reformats were also obtained. Automatic Exposure Control was utilized. Total Dose length Product (DLP): 857.[address] Dose Index Volume (CTDIvol): 15.7 mGy Comparison: none Findings: Trace pericardial effusion noted. There is some mild posterior basilar atelectasis versus infiltrate. Trace pleural effusions also noted. Small bowel dilatation demonstrated multiple loops. There is a transition in the right lower quadrant. Findings suspicious for small bowel obstruction. Please correlate clinically. There are surgical clips in the right lower quadrant as well. There is no abscess or significant free fluid. There is mesenteric stranding indicative of inflammation in the right lower quadrant. The patient has probably had prior appendectomy. There is no hydronephrosis. The gallbladder is distended and slightly dense which may be reflective underlying stones or sludge. IMPRESSION: Suspicion of small bowel obstruction with transition in the right lower quadrant associated with moderate inflammation and surgical clips indicative of appendectomy. Not certain whether some of the apparent inflammation is on the basis of recent surgery. Please correlate with the timing of surgery. No evidence of abscess. Slightly dense distended gallbladder. Underlying stones versus sludge suspected. Posterior basilar atelectasis and/or pneumonia. Trace bilateral pleural effusions and trace pericardial fluid. Hiatal hernia. [facility] has communicated the preliminary results to the Emergency Department. Their findings are largely concordant with this report. The CT scanner at [facility] is accredited by the [employer] and the scans are performed using dose optimization techniques as appropriate to a performed exam including Automatic Exposure control.
[2018-10-09] MEDS ORDERED: Piperacillin/Tazobactam 3.375 GM in NS 110 ML IVPB ONE (04:15)
--- NOTE | 2018-10-09 04:51 | NUR ---
ER Nurse Note: All orders completed per ERMD orders. Pt a&ox4, VSS, no signs of distress. CT completed; resulted into SBO and PNA. NG tube inserted in LT nare; on low intermittent suction, patent and outputing dark green content. Pt stated pain has decreased 2/10 after meds. All safety measures met; will continue to montior.
--- NOTE | 2018-10-09 06:53 | NUR ---
ER Nurse Note: Pt refused MRSA and VRE/CRE swabs. Pt calm, cooperative, VSS, no signs of distress. Pt is complaining about NG tube; explained to pt the importance of NGT; pt still wants it removed. All orders completed per ERMD orders; pending placement. Will endorse to oncoming shift for continutiy of care.
[2018-10-09] MEDS ORDERED: D5NS 1,000 ML IV SCH (07:30)
--- NOTE | 2018-10-09 07:40 | NUR ---
ED Nurse Note: Report given to KRYSTLE Weeks at ext [phone]. Pt to be transfered to room [facility] per protocol with all belongings.
--- NOTE | 2018-10-09 08:24 | NUR ---
NURSE NOTES: NURSE NOTES: Pt arrived from ER complaining of discomfort to throat from NG. Requesting that telegraphic typewriter installer remove tube. " It don't make since that I have this , just pull it out!" " I am dehydrated, and thirsty." Pt informed of NPO status and ice chips can be provided. Pt AO x4 .
--- NOTE | 2018-10-09 09:14 | NUR ---
NURSE NOTES: Zaid phoned due to pt complaints of discomfort from NG, requesting that underwriter pull it out.. Informed of admitting diagnosis of small bowel obstruction . Orders input by ER doctor, stated that ng was part of plan of care. Black Studies Professor returned to room to inform pt, of benefits 2 to diagnosis. NG tube was not in place, noted in trash can. " I couldn't take it I am sorry" Risk explained, benefits explained. " It was scratching my throat" Romano states he will be in in one hour to see pt
--- NOTE | 2018-10-09 10:56 | NUR ---
*-* NO INSURANCE INFROMATION IN THE BAR UNABLE TO SEND CLINICALS OR REVIEWS *-*
--- NOTE | 2018-10-09 14:11 | NUR ---
CHARGE NURSE NOTE: Spoke with . Notified her about WBC 22.2. She is on her way to see the patient.
[2018-10-09] MEDS: D5NS 1,000 ML IV SCH ×2 (14:18→21:16)
--- NOTE | 2018-10-09 15:07 | Consultation ---
History of Present Illness General Date patient seen: Oct 09, 2018 Reason for Hospitalization: Abdominal Pain Present Illness HPI This is a very pleasant 32-year-old male known to me from recent admission for acute appendicitis status post laparoscopic appendectomy. Patient was doing well and discharged in stable condition. Patient states he was home recovering and doing well until day of admission where he woke up felt uncomfortable had a lot of things going on at home and began to have abdominal pain nausea and bilious emesis. Patient states he is been having diarrhea as well. Given these discomforts told his mother that he come to the [facility] for evaluation came to [facility]. Patient does have a leukocytosis. CT scan concerning for possible small bowel obstruction. Patient admitted for care and management. Surgery called to evaluate. Patient seen, patient [place] , chart reviewed. Patient states is very hungry now and no longer is nauseous and has not had emesis recently. States he is passing flatus and hears bowel function. Allergies: Coded Allergies: No Known Allergies (Unverified , 12/02/12) Medication History Scheduled PRN Acetaminophen With Codeine (T#3) (Tylenol #3 Tab*), 1 TAB ORAL Q6HR PRN for For Pain, (Reported) Discontinued Medications Alprazolam* (Xanax*), 0.25 MG PO BID, (Reported) Discontinued Reason: Therapy completed Amoxicillin/Potassium Clav 875-125* (Augmentin 875-125 Tablet*), 1 TAB ORAL Q12HR, (Reported) Discontinued Reason: Therapy completed Esomeprazole Magnesium (Nexium), 40 MG ORAL DAILY Discontinued Reason: Therapy completed Esomeprazole Magnesium (Nexium), 20 MG ORAL DAILY, (Reported) Discontinued Reason: Therapy completed Lorazepam* (Ativan*), 1 MG ORAL THREE TIMES A DAY PRN for For Anxiety Discontinued Reason: Therapy completed Lorazepam* (Lorazepam*), 0.5 MG ORAL DAILY PRN for For Anxiety, (Reported) Discontinued Reason: Therapy completed Metronidazole* (Flagyl*), 500 MG ORAL EVERY 8 HOURS, (Reported) Discontinued Reason: Therapy completed Naproxen* (Naprosyn*), 500 MG ORAL TWICE A DAY Discontinued Reason: Therapy completed No Known Medications* (NKM - No Known Medications*), 0 ., (Reported) Discontinued Reason: Therapy completed Omeprazole (Omeprazole), 20 MG ORAL DAILY Discontinued Reason: Therapy completed Patient History History Provided By: Patient, Medical Record, PMD Healthcare decision maker Resuscitation status Full Code Advanced Directive on File Past Medical/Surgical History Past Medical/Surgical History: (1) Hematuria (2) Gastritis (3) Panic attack (4) ETOH abuse (5) Viral conjunctivitis of right eye (6) Acute gastritis (7) Anxiety attack (8) chocking episode, resolved (9) foreign body sensation (10) Aspiration pneumonia (11) UTI (urinary tract infection) (12) SBO (small bowel obstruction) Review of Systems Review of Symptoms General ROS: no weight loss or fever Psychological ROS: no depression or mood changes, no memory loss Ophthalmic ROS: no visual changes or eye irritation ENT ROS: no nasal congestion, hearing loss, dizziness Allergy and Immunology ROS: no allergic symptoms or urticaria Hematological and Lymphatic ROS: no swollen glands, unusual bleeding or bruising Endocrine ROS: no polyuria, polydipsia, weight changes, temperature intolerance Respiratory ROS: no cough, shortness of breath, or wheezing Cardiovascular ROS: no chest pain or dyspnea on exertion Gastrointestinal ROS: denies abdominal pain, no bright red blood in stool. Musculoskeletal ROS: no myalgias or arthralgias Neurological ROS: no TIA or stroke symptoms Dermatological ROS: no new or changing skin lesions, rashes or pruritis Physical Exam Physical Exam General appearance: alert, cooperative, no distress, appears stated age Head: Normocephalic, without obvious abnormality, atraumatic Eyes: conjunctivae/corneas clear. PERRL, EOM's intact. Fundi benign Throat: Lips, mucosa, and tongue normal. Teeth and gums normal Neck: supple, symmetrical, trachea midline, no adenopathy, thyroid: not enlarged, symmetric, no tenderness/mass/nodules, no carotid bruit and no JVD Lungs: clear to auscultation bilaterally Heart: regular rate and rhythm, S1, S2 normal, no murmur, click, rub or gallop Abdomen: soft, non-tender. Bowel sounds normal. No masses, no organomegaly Extremities: extremities normal, atraumatic, no cyanosis or edema Pulses: 2+ and symmetric Skin: Skin color, texture, turgor normal. No rashes or lesions Neurologic: Grossly normal Last 24 Hour Vital Signs Date Time Temp Pulse Resp B/P (MAP) Pulse Ox O2 Delivery O2 Flow Rate FiO2 10/09/18 09:00 Room Air 10/09/18 08:09 Room Air 10/09/18 07:40 97.9 79 20 119/72 95 Room Air 10/09/18 07:31 97.9 79 20 119/72 95 Room Air 10/09/18 06:52 97.9 80 17 120/70 94 Room Air 10/09/18 04:50 97.9 88 16 132/80 94 Room Air 10/09/18 03:34 97.9 10/09/18 02:40 98 16 Room Air 10/09/18 02:40 97.9 84 16 127/82 92 Room Air 10/09/18 02:16 97.9 98 16 127/82 (97) 92 Room Air Intake and Output 10/08/18 10/09/18 18:59 06:59 Intake Total 2210 ml Balance 2210 ml Intake IV Total 2210 ml Laboratory Tests Test 10/09/18 02:40 10/09/18 03:15 White Blood Count 22.2 K/UL (4.8-10.8) *H Red Blood Count 6.24 M/UL (4.70-6.10) H Hemoglobin 19.1 G/DL (14.2-18.0) *H Hematocrit 56.0 % (42.0-52.0) H Mean Corpuscular Volume 90 FL (80-99) Mean Corpuscular Hemoglobin 30.5 PG (27.0-31.0) Mean Corpuscular Hemoglobin Concent 34.1 G/DL (32.0-36.0) Red Cell Distribution Width 10.7 % (11.6-14.8) L Platelet Count 459 K/UL (150-450) H Mean Platelet Volume 6.3 FL (6.5-10.1) L Neutrophils (%) (Auto) % (45.0-75.0) Lymphocytes (%) (Auto) % (20.0-45.0) Monocytes (%) (Auto) % (1.0-10.0) Eosinophils (%) (Auto) % (0.0-3.0) Basophils (%) (Auto) % (0.0-2.0) Differential Total Cells Counted 100 Neutrophils % (Manual) 80 % (45-75) H Lymphocytes % (Manual) 10 % (20-45) L Monocytes % (Manual) 10 % (1-10) Eosinophils % (Manual) 0 % (0-3) Basophils % (Manual) 0 % (0-2) Band Neutrophils 0 % (0-8) Platelet Estimate Adequate Platelet Morphology Normal Sodium Level 135 MMOL/L (136-145) L Potassium Level 3.2 MMOL/L (3.5-5.1) L Chloride Level 94 MMOL/L (98-107) L Carbon Dioxide Level 25 MMOL/L (21-32) Anion Gap 16 mmol/L (5-15) H Blood Urea Nitrogen 19 mg/dL (7-18) H Creatinine 1.0 MG/DL (0.55-1.30) Estimat Glomerular Filtration Rate > 60 mL/min (>60) Glucose Level 151 MG/DL (74-106) H Calcium Level 9.8 MG/DL (8.5-10.1) Total Bilirubin 2.0 MG/DL (0.2-1.0) H Direct Bilirubin 0.7 MG/DL (0.0-0.3) H Aspartate Amino Transf (AST/SGOT) 17 U/L (15-37) Alanine Aminotransferase (ALT/SGPT) 21 U/L (12-78) Alkaline Phosphatase 153 U/L (46-116) H Total Protein 8.5 G/DL (6.4-8.2) H Albumin 3.1 G/DL (3.4-5.0) L Globulin 5.4 g/dL Albumin/Globulin Ratio 0.6 (1.0-2.7) L Lipase 315 U/L (73-393) Urine Color Yellow Urine Appearance Slightly cloudy Urine pH 6 (4.5-8.0) Urine Specific [place] 1.025 (1.005-1.035) Urine Protein 3+ (NEGATIVE) H Urine Glucose (UA) Negative (NEGATIVE) Urine Ketones 4+ (NEGATIVE) H Urine Blood 3+ (NEGATIVE) H Urine Nitrite Negative (NEGATIVE) Urine Bilirubin 2+ (NEGATIVE) H Urine Ictotest Positive (NEGATIVE) Urine Urobilinogen 4 MG/DL (0.0-1.0) H Urine Leukocyte Esterase 1+ (NEGATIVE) H Urine RBC 2-4 /HPF (0 - 0) H Urine WBC 5-10 /HPF (0 - 0) H Urine Squamous Epithelial Cells None /LPF (NONE/OCC) Urine Bacteria Moderate /HPF (NONE) H Height (Feet): 5 Height (Inches): 6.00 Weight (Pounds): 210 Medications Current Medications Medications (Trade) Dose Ordered Sig/Li Route PRN Reason Start Time Stop Time Status Last Admin Dose Admin Dextrose (Dextrose 50%) 25 ml Q30M PRN IV Hypoglycemia 10/09/18 06:30 11/08/18 06:29 Dextrose (Dextrose 50%) 50 ml Q30M PRN IV Hypoglycemia 10/09/18 06:30 11/08/18 06:29 Dextrose/Sodium Chloride 1,000 ml @ 100 mls/hr Q10H IV 10/09/18 12:30 11/08/18 12:29 10/09/18 14:18 Ondansetron HCl (Zofran) 4 mg Q6H PRN IVP Nausea & Vomiting 10/09/18 06:30 11/08/18 06:29 Potassium Chloride 100 ml @ 100 mls/hr Q1H IVPB 10/09/18 13:00 10/09/18 15:59 10/09/18 14:14 Assessment/Plan Problem List: (1) SBO (small bowel obstruction) Assessment & Plan: 32-year-old male status post lap scopic appendectomy for acute sinusitis with appendiceal necrosis and microperforation identified on pathology. Patient was doing well postoperatively and discharged in stable condition few days ago. Patient was covering at home but presents with abdominal pain nausea and bilious emesis. States he is having diarrhea. Since admission states pain is resolved and feels much better. States still having diarrhea and passing flatus. CT scan noted as below. Leukocytosis 22,000. Dehydration. No acute surgical intervention recommended. Abdominal examination demonstrates a soft minimally tender mild distended abdomen. Patient unlikely to have SBO given the above findings. Likely has a potential ileus. Will await return of bowel function. Okay to resume with clear liquid diet trial. IV antibiotics as per infectious disease. We will follow with serial examinations. Thank you for this consultation allowing me to participate in patient's care ICD Codes: K56.609 - Unspecified intestinal obstruction, unspecified as to partial versus complete obstruction SNOMED: [id number] Salazar Elizabeth Oct 09, 2018 15:07
--- NOTE | 2018-10-09 15:21 | Consultation ---
History of Present Illness General Date patient seen: Oct 09, 2018 Chief Complaint: Abdominal Pain Present Illness HPI 32 y/o M with hx of recent acute necrotic appendicitis s/p laparoscopic appendectomy 10/03 (he was discharged on 10/06) presents back to ED on 10/09 with abd pain, n/v/d. Vomiting was initially clear and now bilious; diarrhea is watery. Pain is diffuse and 10/10 intensity. Unable to keep anything down. Denied f/c. Allergies: Coded Allergies: No Known Allergies (Unverified , 12/02/12) Medication History Scheduled PRN Acetaminophen With Codeine (T#3) (Tylenol #3 Tab*), 1 TAB ORAL Q6HR PRN for For Pain, (Reported) Discontinued Medications Alprazolam* (Xanax*), 0.25 MG PO BID, (Reported) Discontinued Reason: Therapy completed Amoxicillin/Potassium Clav 875-125* (Augmentin 875-125 Tablet*), 1 TAB ORAL Q12HR, (Reported) Discontinued Reason: Therapy completed Esomeprazole Magnesium (Nexium), 40 MG ORAL DAILY Discontinued Reason: Therapy completed Esomeprazole Magnesium (Nexium), 20 MG ORAL DAILY, (Reported) Discontinued Reason: Therapy completed Lorazepam* (Ativan*), 1 MG ORAL THREE TIMES A DAY PRN for For Anxiety Discontinued Reason: Therapy completed Lorazepam* (Lorazepam*), 0.5 MG ORAL DAILY PRN for For Anxiety, (Reported) Discontinued Reason: Therapy completed Metronidazole* (Flagyl*), 500 MG ORAL EVERY 8 HOURS, (Reported) Discontinued Reason: Therapy completed Naproxen* (Naprosyn*), 500 MG ORAL TWICE A DAY Discontinued Reason: Therapy completed No Known Medications* (NKM - No Known Medications*), 0 ., (Reported) Discontinued Reason: Therapy completed Omeprazole (Omeprazole), 20 MG ORAL DAILY Discontinued Reason: Therapy completed Patient History Healthcare decision maker Resuscitation status Full Code Advanced Directive on File Patient History Narrative Pmhx: as above Shx: Denies: smoking Fhx: non contributory Review of Systems All Other Systems: negative except mentioned in HPI Physical Exam Physical Exam Narrative General Appearance: well appearing, no apparent distress, alert Head: normocephalic, atraumatic Eyes: bilateral eye PERRL, bilateral eye EOMI ENT: hearing grossly normal, normal pharynx Neck: full range of motion, supple, no meningismus Respiratory: chest non-tender, lungs clear, normal breath sounds Cardiovascular #1: regular rate, rhythm, no murmur Gastrointestinal: no mass, no organomegaly, no bruit, non-distended, tenderness - Diffuse tenderness, other - Surgical site clean., decreased bowel sounds Musculoskeletal: back normal, gait/station normal, normal range of motion Psychiatric: mood/affect normal Last 24 Hour Vital Signs Date Time Temp Pulse Resp B/P (MAP) Pulse Ox O2 Delivery O2 Flow Rate FiO2 10/09/18 09:00 Room Air 10/09/18 08:09 Room Air 10/09/18 07:40 97.9 79 20 119/72 95 Room Air 10/09/18 07:31 97.9 79 20 119/72 95 Room Air 10/09/18 06:52 97.9 80 17 120/70 94 Room Air 10/09/18 04:50 97.9 88 16 132/80 94 Room Air 10/09/18 03:34 97.9 10/09/18 02:40 98 16 Room Air 10/09/18 02:40 97.9 84 16 127/82 92 Room Air 10/09/18 02:16 97.9 98 16 127/82 (97) 92 Room Air Intake and Output 10/08/18 10/09/18 18:59 06:59 Intake Total 2210 ml Balance 2210 ml Intake IV Total 2210 ml Laboratory Tests Test 10/09/18 02:40 10/09/18 03:15 White Blood Count 22.2 K/UL (4.8-10.8) *H Red Blood Count 6.24 M/UL (4.70-6.10) H Hemoglobin 19.1 G/DL (14.2-18.0) *H Hematocrit 56.0 % (42.0-52.0) H Mean Corpuscular Volume 90 FL (80-99) Mean Corpuscular Hemoglobin 30.5 PG (27.0-31.0) Mean Corpuscular Hemoglobin Concent 34.1 G/DL (32.0-36.0) Red Cell Distribution Width 10.7 % (11.6-14.8) L Platelet Count 459 K/UL (150-450) H Mean Platelet Volume 6.3 FL (6.5-10.1) L Neutrophils (%) (Auto) % (45.0-75.0) Lymphocytes (%) (Auto) % (20.0-45.0) Monocytes (%) (Auto) % (1.0-10.0) Eosinophils (%) (Auto) % (0.0-3.0) Basophils (%) (Auto) % (0.0-2.0) Differential Total Cells Counted 100 Neutrophils % (Manual) 80 % (45-75) H Lymphocytes % (Manual) 10 % (20-45) L Monocytes % (Manual) 10 % (1-10) Eosinophils % (Manual) 0 % (0-3) Basophils % (Manual) 0 % (0-2) Band Neutrophils 0 % (0-8) Platelet Estimate Adequate Platelet Morphology Normal Sodium Level 135 MMOL/L (136-145) L Potassium Level 3.2 MMOL/L (3.5-5.1) L Chloride Level 94 MMOL/L (98-107) L Carbon Dioxide Level 25 MMOL/L (21-32) Anion Gap 16 mmol/L (5-15) H Blood Urea Nitrogen 19 mg/dL (7-18) H Creatinine 1.0 MG/DL (0.55-1.30) Estimat Glomerular Filtration Rate > 60 mL/min (>60) Glucose Level 151 MG/DL (74-106) H Calcium Level 9.8 MG/DL (8.5-10.1) Total Bilirubin 2.0 MG/DL (0.2-1.0) H Direct Bilirubin 0.7 MG/DL (0.0-0.3) H Aspartate Amino Transf (AST/SGOT) 17 U/L (15-37) Alanine Aminotransferase (ALT/SGPT) 21 U/L (12-78) Alkaline Phosphatase 153 U/L (46-116) H Total Protein 8.5 G/DL (6.4-8.2) H Albumin 3.1 G/DL (3.4-5.0) L Globulin 5.4 g/dL Albumin/Globulin Ratio 0.6 (1.0-2.7) L Lipase 315 U/L (73-393) Urine Color Yellow Urine Appearance Slightly cloudy Urine pH 6 (4.5-8.0) Urine Specific [place] 1.025 (1.005-1.035) Urine Protein 3+ (NEGATIVE) H Urine Glucose (UA) Negative (NEGATIVE) Urine Ketones 4+ (NEGATIVE) H Urine Blood 3+ (NEGATIVE) H Urine Nitrite Negative (NEGATIVE) Urine Bilirubin 2+ (NEGATIVE) H Urine Ictotest Positive (NEGATIVE) Urine Urobilinogen 4 MG/DL (0.0-1.0) H Urine Leukocyte Esterase 1+ (NEGATIVE) H Urine RBC 2-4 /HPF (0 - 0) H Urine WBC 5-10 /HPF (0 - 0) H Urine Squamous Epithelial Cells None /LPF (NONE/OCC) Urine Bacteria Moderate /HPF (NONE) H Height (Feet): 5 Height (Inches): 6.00 Weight (Pounds): 210 Medications Current Medications Medications (Trade) Dose Ordered Sig/Li Route PRN Reason Start Time Stop Time Status Last Admin Dose Admin Dextrose (Dextrose 50%) 25 ml Q30M PRN IV Hypoglycemia 10/09/18 06:30 11/08/18 06:29 Dextrose (Dextrose 50%) 50 ml Q30M PRN IV Hypoglycemia 10/09/18 06:30 11/08/18 06:29 Dextrose/Sodium Chloride 1,000 ml @ 100 mls/hr Q10H IV 10/09/18 12:30 11/08/18 12:29 10/09/18 14:18 Ondansetron HCl (Zofran) 4 mg Q6H PRN IVP Nausea & Vomiting 10/09/18 06:30 11/08/18 06:29 Potassium Chloride 100 ml @ 100 mls/hr Q1H IVPB 10/09/18 13:00 10/09/18 15:59 10/09/18 14:14 Assessment/Plan Assessment/Plan: Abx: ZOsyn x1 10/09 Levaquin x 1 10/09 Assessment: Abd pain, V/D- Ileus - r/o Cdiff -CT abd/p: Suspicion of small bowel obstruction with transition in the right lower quadrant associated with moderate inflammation and surgical clips indicative of appendectomy. Not certain whether some of the apparent inflammation is on the basis of recent surgery. Please correlate with the timing of surgery. No evidence of abscess.Slightly dense distended gallbladder. Underlying stones versus sludge suspected. Posterior basilar atelectasis and/or pneumonia. Trace bilateral pleural effusions and trace pericardial fluid. Hiatal hernia. Afebrile Leukocytosis -u/a wbc 5-10, nit neg, leuk +2; ucx p Recent acute necrotic appendicitis -10/03 SP Laparoscopic appendectomy -s/p Zosyn> Augmentin Plan: -Start empiric PO Vancomycin -stool cx, Cdiff -f/u cx -Monitor CBC/CMP, temperatures -Sx f/u Thank you for this consultation. Will continue to follow along with you. Discussed with Kalina Teran M.D. Oct 09, 2018 15:21
--- NOTE | 2018-10-09 16:26 | NUR ---
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 97.9 HR 98 RR 16 B/P 127/82 WBC 22.2 H/H 19.1 /56 NA 135 K 3.2 BUN 19 UA+ PROTEIN,KETONES,BLOOD,ICTOTEST,LEUKOCYTE ESTERASE,RBC WBC BACTERIA ABD/PELVIS CT=Bowel: Evidence of small bowel obstruction with transition point in the right lower quadrant in the area of post surgical changes. Fat stranding and free fluid in this postsurgical area is likely expected postoperative inflammation/fluid. IS: ZOFRAN IV IV BOLUS NS X 2 LITERS ZOSYN IV MORPHINE IV ADMITTED TO MED/SURG @ [id number] MED/SURG STATUS
--- NOTE | 2018-10-09 16:53 | NUR ---
*-* INSURANCE *-* ALL AVAILABLE CLINICALS & REVIEW HAVE BEEN FAXED TO: [facility] [place]:JACOB Vega: [phone]
--- NOTE | 2018-10-09 17:34 | NUR ---
NURSE NOTES: IV bag restarted twice. Pt denies stopping pump. Primary infusing instead of secondary . Encouraged to go to restroom with assistance
--- NOTE | 2018-10-09 18:00 | History and Physical Report ---
DATE OF ADMISSION: 10/09/2018 REASON FOR ADMISSION: 1. Abdominal pain. 2. Nausea and vomiting. 3. Small bowel obstruction. HISTORY OF PRESENT ILLNESS: The patient is a 32-year-old gentleman, who was recently discharged after a laparoscopic appendectomy due to acute appendicitis. The patient had been doing well. White count was trending down and he was discharged with some pain medication and antibiotics. He now returns again. He states over the last few days, his abdominal pain returned with profuse nausea and vomiting and explosive diarrhea. Watery diarrhea in nature. He states he has not been able to eat or drink over the last few days. PAST MEDICAL HISTORY: Appendicitis. PAST SURGICAL HISTORY: Appendectomy. ALLERGIES: No known drug allergies. SOCIAL HISTORY: No tobacco, alcohol, or illicit drug use. FAMILY HISTORY: Noncontributory. REVIEW OF SYSTEMS: NEUROLOGIC: The patient denies headache, change in vision, syncope, or presyncopal episodes. CARDIOVASCULAR: No current chest pain, palpitations, or angina. PULMONARY: No difficulty breathing, productive cough, or sputum. GASTROINTESTINAL/GENITOURINARY: The patient denies nausea, vomiting, or diarrhea. ENDOCRINOLOGY: No night sweats, fevers, or chills. MUSCULOSKELETAL: The patient is feeling weak, tired, and fatigued. PHYSICAL EXAMINATION: VITAL SIGNS: Blood pressure 119/72, respiratory rate 20, pulse 79, temperature 97.9, and 95% oxygen saturation on room air. GENERAL: The patient is awake and alert, not in distress. HEENT: Extraocular muscles intact. No lymphadenopathy noted. Oropharyngeal mucosa clear and dry. CARDIOVASCULAR: S1, S2. No rubs or gallops. Regular rate. PULMONARY: Clear to auscultation bilaterally. No rales, rhonchi, or wheezes. ABDOMINAL: Quiet bowel sounds. Nondistended. Mild tenderness. EXTREMITIES: No edema. LABORATORY DATA: Labs dated October 09, 2018, white cell count 22.2, hemoglobin 19.1, and platelet count 459,000. Sodium 135, potassium 3.2, BUN 19, and creatinine 1. Alkaline phosphatase 153. Albumin 3.1. ASSESSMENT AND PLAN: 1. Nausea and vomiting secondary to possible small bowel obstruction. Status post appendectomy last week. General Surgery has been consulted for further evaluation and management. 2. Sepsis. White count remains elevated at 22,000, has increased since discharge. Infectious Disease been consulted to adjust antibiotics appropriately. 3. DVT prophylaxis with SCDs. 4. Hypokalemia. We will replace IV potassium. 5. Volume depletion with hemoglobin at 19.1. We will aggressively hydrate the patient. Melvin Ford MD DR: RAMIRO JOB#: [id number] CC:
[2018-10-09] MEDS: Vancomycin oral 125mg/2.5ml ORAL SCH ×2 (19:03→20:55)
--- NOTE | 2018-10-09 19:49 | NUR ---
NURSE NOTES: Pt is in bed comfortably. Call light is in reach. Informed that he needed to have a bm to use in hat, so specimen can be obtained. ID band noted on floor. Pt stated he did not know where it was, id band was on the floor ripped. Purpose of id band given. Verbalized understanding. Tolerated clear liquid diet well with n/v
--- NOTE | 2018-10-09 19:53 | NUR ---
HAND-OFF: Report given to Mamie stool collection pending, pt did not have bm on my shift. .
--- NOTE | 2018-10-09 19:57 | NUR ---
NURSE NOTES: Received patient in bed, awake, alert, oriented, able to make his needs known, VSS, afebrile. ambulates with steady gate. Call light is within reach, bed is locked, lowered, alarm is on, will continue to monitor for nausea/vomiting, comfort and safety.
[2018-10-10] VITALS: BP 124/79
[2018-10-10 04:00] VITALS: BP 112/71
[2018-10-10 06:14] LABS: INR 1.2 (0.9-1.1)
[2018-10-10 06:22] LABS: BASOPHILS % (AUTO) 1.3 % (0.0-2.0); EOSINOPHILS % (AUTO) 1.6 % (0.0-3.0); HEMATOCRIT 43.7 % (42.0-52.0); HEMOGLOBIN 14.8 G/DL (14.2-18.0); MEAN CORPUSCULAR VOLUME 91 FL (80-99); NEUTROPHILS % (AUTO) 77.1 % (45.0-75.0); PLATELET COUNT 389 K/UL (150-450); RED BLOOD COUNT 4.78 M/UL (4.70-6.10); RED CELL DISTRIBUTION WIDTH 11.6 % (11.6-14.8); WHITE BLOOD COUNT 13.1 K/UL (4.8-10.8)
[2018-10-10 06:32] LABS: ANION GAP 7 mmol/L (5-15); BLOOD UREA NITROGEN 13 mg/dL (7-18); CALCIUM 8.5 MG/DL (8.5-10.1); CARBON DIOXIDE 28 MMOL/L (21-32); CHLORIDE 101 MMOL/L (98-107); CREATININE 0.9 MG/DL (0.55-1.30); POTASSIUM 3.3 MMOL/L (3.5-5.1); SODIUM 136 MMOL/L (136-145)
--- NOTE | 2018-10-10 06:58 | NUR ---
HAND-OFF: Report given to Devan DALTON.
--- NOTE | 2018-10-10 07:46 | NUR ---
NURSE NOTES: Received report from KRYSTLE Hatch. The patient is resting on the bed without acute distress or shortness of breath. The patient's bed in the lowest position, call light in reach, and fall and aspiration precaution reinforced. Intact and patent IV. No nausea or vomiting noted at this time. Will continue plan of care.
[2018-10-10 08:00] VITALS: BP 116/73
--- NOTE | 2018-10-10 08:22 | NUR ---
NURSE NOTES: Notified Dr. Ford regarding potassium level of 3.3. Will carry out the order as soon as receives it. Will continue plan of care.
--- NOTE | 2018-10-10 08:28 | NUR ---
NURSE NOTES: Per Dr. Ford, KCl 10meq x2 ordered. Carried out the order. Will continue to monitor the patient.
[2018-10-10] MEDS: D5NS 1,000 ML IV SCH (08:51)
[2018-10-10] MEDS: Vancomycin oral 125mg/2.5ml ORAL SCH ×4 (08:52→21:21)
--- NOTE | 2018-10-10 10:30 | Surgery Progress Note ---
Surgery Progress Note Subjective Additional Comments wbc improved h/h stable lipase elevated no v/f/c; intermittent nausea pain improved tolerating diet. wants more food +diarrhea Objective Last 24 Hour Vital Signs Date Time Temp Pulse Resp B/P (MAP) Pulse Ox O2 Delivery O2 Flow Rate FiO2 10/10/18 08:00 98.5 50 18 116/73 (87) 95 10/10/18 04:00 98.7 59 17 112/71 (85) 10/10/18 00:00 98.7 68 18 124/79 (94) 10/09/18 21:55 99.2 72 19 128/80 (96) 10/09/18 21:54 Room Air 10/09/18 20:00 99.2 72 19 128/80 (96) 10/09/18 16:00 98.5 57 18 122/73 (89) 93 10/09/18 12:00 98.2 59 20 109/68 (82) 94 I&O Intake and Output 10/09/18 10/10/18 19:00 07:00 Intake Total 340 ml 960 ml Balance 340 ml 960 ml Intake Oral 240 ml 360 ml IV Total 100 ml 600 ml # Voids 3 2 # Bowel Movements 1 1 Dressing: dry Wound: clean Drains: none Cardiovascular: RSR Respiratory: clear Abdomen: soft, flat, non-tender, present bowel sounds, non-distended Extremities: no edema, no tenderness, no cyanosis Laboratory Tests Test 10/10/18 05:25 White Blood Count 13.1 K/UL (4.8-10.8) H Red Blood Count 4.78 M/UL (4.70-6.10) Hemoglobin 14.8 G/DL (14.2-18.0) Hematocrit 43.7 % (42.0-52.0) Mean Corpuscular Volume 91 FL (80-99) Mean Corpuscular Hemoglobin 30.9 PG (27.0-31.0) Mean Corpuscular Hemoglobin Concent 33.8 G/DL (32.0-36.0) Red Cell Distribution Width 11.6 % (11.6-14.8) Platelet Count 389 K/UL (150-450) Mean Platelet Volume 6.3 FL (6.5-10.1) L Neutrophils (%) (Auto) 77.1 % (45.0-75.0) H Lymphocytes (%) (Auto) 12.0 % (20.0-45.0) L Monocytes (%) (Auto) 8.0 % (1.0-10.0) Eosinophils (%) (Auto) 1.6 % (0.0-3.0) Basophils (%) (Auto) 1.3 % (0.0-2.0) Erythrocyte Sedimentation Rate 28 MM/HR (0-15) H Prothrombin Time 12.8 SEC (9.30-11.50) H Prothromb Time International Ratio 1.2 (0.9-1.1) H Activated Partial Thromboplast Time 32 SEC (23-33) Sodium Level 136 MMOL/L (136-145) Potassium Level 3.3 MMOL/L (3.5-5.1) L Chloride Level 101 MMOL/L (98-107) Carbon Dioxide Level 28 MMOL/L (21-32) Anion Gap 7 mmol/L (5-15) Blood Urea Nitrogen 13 mg/dL (7-18) Creatinine 0.9 MG/DL (0.55-1.30) Estimat Glomerular Filtration Rate > 60 mL/min (>60) Glucose Level 123 MG/DL (74-106) H Calcium Level 8.5 MG/DL (8.5-10.1) C-Reactive Protein, Quantitative 11.1 mg/dL (0.00-0.90) H Lipase 498 U/L (73-393) H Plan Problems: (1) SBO (small bowel obstruction) Assessment & Plan: 32-year-old male status post lap scopic appendectomy for acute sinusitis with appendiceal necrosis and microperforation identified on pathology. Patient was doing well postoperatively and discharged in stable condition few days ago. Patient was covering at home but presents with abdominal pain nausea and bilious emesis. States he is having diarrhea. Since admission states pain is resolved and feels much better. States still having diarrhea and passing flatus. CT scan noted as below. Leukocytosis 22,000. Dehydration. No acute surgical intervention recommended. Abdominal examination demonstrates a soft minimally tender mild distended abdomen. Patient unlikely to have SBO given the above findings. Likely has a potential ileus. Will await return of bowel function. Okay to resume with clear liquid diet trial. IV antibiotics as per infectious disease. We will follow with serial examinations. Thank you for this consultation allowing me to participate in patient's care ileus resolving diarrhea pending c diff given on abx prior regular diet d/c planning Salazar Elizabeth Oct 10, 2018 10:30
[2018-10-10 12:00] VITALS: BP 125/80
--- NOTE | 2018-10-10 12:47 | Nephrology Progress Note ---
Assessment/Plan Assessment/Plan: A/P 1) N/V- ileus post appy. Resolving WBC decreased on ABx 2) DVT prophy- ambulation Disposition DC felipe am if tolerating regular diet Subjective Date patient seen: Oct 10, 2018 Time patient seen: 12:45 ROS Limited/Unobtainable: No Allergies: Coded Allergies: No Known Allergies (Unverified , 12/02/12) Subjective Patient continues to improve. Started on clear liquids Objective Last 24 Hour Vital Signs Date Time Temp Pulse Resp B/P (MAP) Pulse Ox O2 Delivery O2 Flow Rate FiO2 10/10/18 12:00 98.4 48 18 125/80 (95) 95 10/10/18 09:00 Room Air 10/10/18 08:00 98.5 50 18 116/73 (87) 95 10/10/18 04:00 98.7 59 17 112/71 (85) 10/10/18 00:00 98.7 68 18 124/79 (94) 10/09/18 21:55 99.2 72 19 128/80 (96) 10/09/18 21:54 Room Air 10/09/18 20:00 99.2 72 19 128/80 (96) 10/09/18 16:00 98.5 57 18 122/73 (89) 93 Intake and Output 10/09/18 10/10/18 18:59 06:59 Intake Total 340 ml 960 ml Balance 340 ml 960 ml Intake Oral 240 ml 360 ml IV Total 100 ml 600 ml # Voids 3 2 # Bowel Movements 1 1 Laboratory Tests 10/10/18 05:25: White Blood Count 13.1H, Red Blood Count 4.78, Hemoglobin 14.8, Hematocrit 43.7 , Mean Corpuscular Volume 91, Mean Corpuscular Hemoglobin 30.9, Mean Corpuscular Hemoglobin Concent 33.8, Red Cell Distribution Width 11.6, Platelet Count 389, Mean Platelet Volume 6.3L, Neutrophils (%) (Auto) 77.1H, Lymphocytes (%) (Auto) 12.0L, Monocytes (%) (Auto) 8.0, Eosinophils (%) (Auto) 1.6, Basophils (%) (Auto) 1.3, Erythrocyte Sedimentation Rate 28H, Prothrombin Time 12.8H, Prothromb Time International Ratio 1.2H, Activated Partial Thromboplast Time 32, Sodium Level 136, Potassium Level 3.3L, Chloride Level 101, Carbon Dioxide Level 28, Anion Gap 7, Blood Urea Nitrogen 13, Creatinine 0.9, Estimat Glomerular Filtration Rate > 60, Glucose Level 123H, Calcium Level 8.5, C- Reactive Protein, Quantitative 11.1H, Lipase 498H Height (Feet): 5 Height (Inches): 6.00 Weight (Pounds): 210 General Appearance: no apparent distress EENT: normal ENT inspection Neck: normal alignment Cardiovascular: normal rate, regular rhythm Respiratory/Chest: lungs clear, normal breath sounds Abdomen: non tender, soft Edema: no edema noted Arm (L), no edema noted Arm (R), no edema noted Leg (L), no edema noted Leg (R), no edema noted Pedal (L), no edema noted Pedal (R), no edema noted Generalized Melvin Ford MD Oct 10, 2018 12:47
--- NOTE | 2018-10-10 13:01 | NUR ---
NURSE NOTES: Notified Dr. Ford regarding patient's bradycardia. Per Dr. Ford, no new order and can keep the patient at med/surg. Will continue to monitor the patient.
--- NOTE | 2018-10-10 13:02 | NUR ---
NURSE NOTES: Instruction given to the patient regarding stool collection. Will continue plan of care.
--- NOTE | 2018-10-10 13:34 | Infectious Diseases Prog Note ---
Assessment/Plan Assessment/Plan Abx: ZOsyn x1 10/09 Levaquin x 1 10/09 Assessment: Abd pain, V/D- Ileus - r/o Cdiff -CT abd/p: Suspicion of small bowel obstruction with transition in the right lower quadrant associated with moderate inflammation and surgical clips indicative of appendectomy. Not certain whether some of the apparent inflammation is on the basis of recent surgery. Please correlate with the timing of surgery. No evidence of abscess.Slightly dense distended gallbladder. Underlying stones versus sludge suspected. Posterior basilar atelectasis and/or pneumonia. Trace bilateral pleural effusions and trace pericardial fluid. Hiatal hernia. Afebrile Leukocytosis; improving- (ileus contributing) -u/a wbc 5-10, nit neg, leuk +2; ucx NTD Recent acute necrotic appendicitis -10/03 SP Laparoscopic appendectomy -s/p Zosyn> Augmentin Plan: -Cont empiric PO Vancomycin #2 -f/u stool cx, Cdiff -f/u cx -Monitor CBC/CMP, temperatures -Sx f/u Thank you for this consultation. Will continue to follow along with you. Discussed with RN Subjective Allergies: Coded Allergies: No Known Allergies (Unverified , 12/02/12) Subjective afebrile wbc improving Objective Vital Signs Last 24 Hour Vital Signs Date Time Temp Pulse Resp B/P (MAP) Pulse Ox O2 Delivery O2 Flow Rate FiO2 10/10/18 12:00 98.4 48 18 125/80 (95) 95 10/10/18 09:00 Room Air 10/10/18 08:00 98.5 50 18 116/73 (87) 95 10/10/18 04:00 98.7 59 17 112/71 (85) 10/10/18 00:00 98.7 68 18 124/79 (94) 10/09/18 21:55 99.2 72 19 128/80 (96) 10/09/18 21:54 Room Air 10/09/18 20:00 99.2 72 19 128/80 (96) 10/09/18 16:00 98.5 57 18 122/73 (89) 93 Height (Feet): 5 Height (Inches): 6.00 Weight (Pounds): 210 Objective General Appearance: well appearing, no apparent distress, alert Head: normocephalic, atraumatic Eyes: bilateral eye PERRL, bilateral eye EOMI ENT: hearing grossly normal, normal pharynx Neck: full range of motion, supple, no meningismus Respiratory: chest non-tender, lungs clear, normal breath sounds Cardiovascular #1: regular rate, rhythm, no murmur Gastrointestinal: no mass, no organomegaly, no bruit, non-distended, tenderness - Diffuse tenderness, other - Surgical site clean., decreased bowel sounds Musculoskeletal: back normal, gait/station normal, normal range of motion Psychiatric: mood/affect normal Microbiology Date/Time Source Procedure Growth Status 10/09/18 03:15 Urine,Clean Catch Urine Culture - Preliminary NO GROWTH AFTER 24 HOURS Resulted Laboratory Tests Test 10/10/18 05:25 White Blood Count 13.1 K/UL (4.8-10.8) H Red Blood Count 4.78 M/UL (4.70-6.10) Hemoglobin 14.8 G/DL (14.2-18.0) Hematocrit 43.7 % (42.0-52.0) Mean Corpuscular Volume 91 FL (80-99) Mean Corpuscular Hemoglobin 30.9 PG (27.0-31.0) Mean Corpuscular Hemoglobin Concent 33.8 G/DL (32.0-36.0) Red Cell Distribution Width 11.6 % (11.6-14.8) Platelet Count 389 K/UL (150-450) Mean Platelet Volume 6.3 FL (6.5-10.1) L Neutrophils (%) (Auto) 77.1 % (45.0-75.0) H Lymphocytes (%) (Auto) 12.0 % (20.0-45.0) L Monocytes (%) (Auto) 8.0 % (1.0-10.0) Eosinophils (%) (Auto) 1.6 % (0.0-3.0) Basophils (%) (Auto) 1.3 % (0.0-2.0) Erythrocyte Sedimentation Rate 28 MM/HR (0-15) H Prothrombin Time 12.8 SEC (9.30-11.50) H Prothromb Time International Ratio 1.2 (0.9-1.1) H Activated Partial Thromboplast Time 32 SEC (23-33) Sodium Level 136 MMOL/L (136-145) Potassium Level 3.3 MMOL/L (3.5-5.1) L Chloride Level 101 MMOL/L (98-107) Carbon Dioxide Level 28 MMOL/L (21-32) Anion Gap 7 mmol/L (5-15) Blood Urea Nitrogen 13 mg/dL (7-18) Creatinine 0.9 MG/DL (0.55-1.30) Estimat Glomerular Filtration Rate > 60 mL/min (>60) Glucose Level 123 MG/DL (74-106) H Calcium Level 8.5 MG/DL (8.5-10.1) C-Reactive Protein, Quantitative 11.1 mg/dL (0.00-0.90) H Lipase 498 U/L (73-393) H Current Medications Medications (Trade) Dose Ordered Sig/Li Route PRN Reason Start Time Stop Time Status Last Admin Dose Admin Al Hydroxide/Mg Hydroxide (Mylanta) 30 ml Q6H PRN ORAL GI UPSET 10/09/18 16:19 11/08/18 16:18 10/09/18 16:51 Dextrose (Dextrose 50%) 25 ml Q30M PRN IV Hypoglycemia 10/09/18 06:30 11/08/18 06:29 Dextrose (Dextrose 50%) 50 ml Q30M PRN IV Hypoglycemia 10/09/18 06:30 11/08/18 06:29 Ondansetron HCl (Zofran) 4 mg Q6H PRN IVP Nausea & Vomiting 10/09/18 06:30 11/08/18 06:29 10/10/18 06:20 Pantoprazole (Protonix) 40 mg DAILY ORAL 10/11/18 09:00 11/10/18 08:59 Vancomycin HCl (Firvanq) 125 mg FOUR TIMES A DAY ORAL 10/09/18 18:00 10/16/18 17:59 10/10/18 13:09 Kalina Mcclain M.D. Oct 10, 2018 13:34
--- NOTE | 2018-10-10 14:44 | NUR ---
NURSE NOTES: Stool collection completed for C.diff and stool culture. Brought the sample down to lab. Will continue to monitor the patient.
[2018-10-10] MEDS ORDERED: D5NS 1000ml IV ONE (14:47)
--- NOTE | 2018-10-10 15:17 | NUR ---
*-* INSURANCE *-* UPDATED CLINICALS HAVE BEEN FAXED TO: [facility]:JACOB Vega: [phone]
[2018-10-10 16:00] VITALS: BP 111/71
--- NOTE | 2018-10-10 16:54 | NUR ---
PANEL [employer] MAN SI: DENIZ Reinoso 98.4 HR 50 RR 18 B/P 125/80 WBC 13.1 ESR 28 IS: VANCO PO PROTONIX PO ZOFRAN IV MED/SURG STATUS
--- NOTE | 2018-10-10 19:37 | NUR ---
HAND-OFF: Report given to KRYSTLE Oneal. The patient is resting on the bed without acute distress or shortness of breath. The patient's bed in the lowest position, call light in reach, and fall precaution reinforced. IV intact and patent. Endorsed plan of care.
--- NOTE | 2018-10-10 19:42 | NUR ---
NURSE NOTES: Report taken from KRYSTLE Mir. Patient is awake and in bed, A&Ox4. No signs of distress on room air. No complaints of pain. Is having some nausea and heartburn post meal, but states that it is minimal compared to previous days. Has dinner at bedside, arrived late so he is continuing to eat, tolerating well so far. Skin is intact, has healing surgical wound from previous surgery a week ago. Bed in lowest position, call light within reach.
[2018-10-10 20:00] VITALS: BP 140/84
[2018-10-11] VITALS: BP 133/77
[2018-10-11 04:00] VITALS: BP 124/66
[2018-10-11 06:48] LABS: BASOPHILS % (AUTO) 0.5 % (0.0-2.0); HEMATOCRIT 46.3 % (42.0-52.0); HEMOGLOBIN 15.6 G/DL (14.2-18.0); LYMPHOCYTES % (AUTO) 12.9 % (20.0-45.0); MEAN CORPUSCULAR VOLUME 92 FL (80-99); NEUTROPHILS % (AUTO) 76.6 % (45.0-75.0); PLATELET COUNT 378 K/UL (150-450); RED BLOOD COUNT 5.01 M/UL (4.70-6.10); RED CELL DISTRIBUTION WIDTH 11.1 % (11.6-14.8); WHITE BLOOD COUNT 11.3 K/UL (4.8-10.8)
--- NOTE | 2018-10-11 07:19 | NUR ---
HAND-OFF: Report given to KRYSTLE Griffin. Patient is awake and stable. Potential D/C today.
--- NOTE | 2018-10-11 07:29 | NUR ---
NURSE NOTES: PT AXOX4, CALM, SITTING ON CHAIR WATCHING TV DURING RN'S INITIAL ROUNDS. PT DENIES ABDOMINAL PAIN OR VOMITING. PT ATE BREAKFAST AND TOLERATED WELL. IN NO APPARENT DISTRESS AT THIS TIME. WILL CONTINUE TO MONITOR.
[2018-10-11 07:30] LABS: ALANINE AMINOTRANSFERASE 136 U/L (12-78); ALBUMIN 2.7 G/DL (3.4-5.0); ALBUMIN/GLOBULIN RATIO 0.6 (1.0-2.7); ALKALINE PHOSPHATASE 164 U/L (46-116); ANION GAP 11 mmol/L (5-15); ASPARTATE AMINO TRANSFERASE 89 U/L (15-37); BILIRUBIN,TOTAL 1.4 MG/DL (0.2-1.0); BLOOD UREA NITROGEN 11 mg/dL (7-18); CALCIUM 8.3 MG/DL (8.5-10.1); CARBON DIOXIDE 24 MMOL/L (21-32); CHLORIDE 104 MMOL/L (98-107); CREATININE 0.9 MG/DL (0.55-1.30); POTASSIUM 3.6 MMOL/L (3.5-5.1); SODIUM 138 MMOL/L (136-145)
[2018-10-11 07:35] LABS: BILIRUBIN,DIRECT 0.3 MG/DL (0.0-0.3)
[2018-10-11 08:00] VITALS: BP 112/67
[2018-10-11] MEDS: Vancomycin oral 125mg/2.5ml ORAL SCH (08:04)
--- NOTE | 2018-10-11 10:23 | NUR ---
NURSE NOTES: DR VALE GAVE CLEARANCE FOR DISCHARGE. MADE AWARE PT IS TOLERATING REGULAR DIET, HAS BOWEL SOUNDS, HAD BM YESTERDAY. RN NOTIFIED DR GEE. PER , HE WILL BE HERE SHORTLY.
--- NOTE | 2018-10-11 10:37 | NUR ---
NURSE NOTES: RN LEFT MESSAGE FOR DR LINK REGARDING ANTICIPATED DISCHARGE TODAY AND IF MD WOULD LIKE TO ORDER ANTIBIOTICS FOR DISCHARGE. AWAITING CALL BACK.
--- NOTE | 2018-10-11 10:42 | Nephrology Progress Note ---
Assessment/Plan Assessment/Plan: A/P 1) N/V- ileus post appy. Resolving. OK for DC today. Cleared from surgery WBC decreased on ABx 2) DVT prophy- ambulation DC today. Abx per ID Subjective Date patient seen: Oct 11, 2018 Time patient seen: 10:41 ROS Limited/Unobtainable: No Allergies: Coded Allergies: No Known Allergies (Unverified , 12/02/12) Subjective Patient continues to improve. DC today Objective Last 24 Hour Vital Signs Date Time Temp Pulse Resp B/P (MAP) Pulse Ox O2 Delivery O2 Flow Rate FiO2 10/11/18 08:00 98.7 59 20 112/67 (82) 94 10/11/18 07:57 Room Air 10/11/18 04:00 98.4 55 18 124/66 (85) 93 10/11/18 00:00 98.2 56 17 133/77 (95) 94 10/10/18 21:00 Room Air 10/10/18 20:00 98.0 53 18 140/84 (102) 94 10/10/18 17:30 Room Air 10/10/18 16:00 98.1 60 18 111/71 (84) 96 10/10/18 12:00 98.4 48 18 125/80 (95) 95 Intake and Output 10/10/18 10/11/18 19:00 07:00 Intake Total 400 ml 480 ml Balance 400 ml 480 ml Intake Oral 400 ml 480 ml # Voids 5 3 # Bowel Movements 4 2 Laboratory Tests 10/11/18 05:45: White Blood Count 11.3H, Red Blood Count 5.01, Hemoglobin 15.6, Hematocrit 46.3 , Mean Corpuscular Volume 92, Mean Corpuscular Hemoglobin 31.0, Mean Corpuscular Hemoglobin Concent 33.6, Red Cell Distribution Width 11.1L, Platelet Count 378, Mean Platelet Volume 6.3L, Neutrophils (%) (Auto) 76.6H, Lymphocytes (%) (Auto) 12.9L, Monocytes (%) (Auto) 8.0, Eosinophils (%) (Auto) 2.0, Basophils (%) (Auto) 0.5, Sodium Level 138, Potassium Level 3.6, Chloride Level 104, Carbon Dioxide Level 24, Anion Gap 11, Blood Urea Nitrogen 11, Creatinine 0.9, Estimat Glomerular Filtration Rate > 60, Glucose Level 104, Calcium Level 8.3L, Total Bilirubin 1.4H, Direct Bilirubin 0.3, Aspartate Amino Transf (AST/SGOT) 89H, Alanine Aminotransferase (ALT/SGPT) 136H, Alkaline Phosphatase 164H, Total Protein 7.0, Albumin 2.7L, Globulin 4.3, Albumin/ Globulin Ratio 0.6L, Lipase 605H Height (Feet): 5 Height (Inches): 6.00 Weight (Pounds): 210 General Appearance: no apparent distress EENT: normal ENT inspection Neck: normal alignment, supple Cardiovascular: normal rate, regular rhythm Respiratory/Chest: lungs clear, normal breath sounds Abdomen: non tender, soft Edema: no edema noted Arm (L), no edema noted Arm (R), no edema noted Leg (L), no edema noted Leg (R), no edema noted Pedal (L), no edema noted Pedal (R), no edema noted Generalized Melvin Ford MD Oct 11, 2018 10:42
--- NOTE | 2018-10-11 10:43 | Discharge Instructions ---
Discharge Instructions Discharge Instructions Services at Discharge: day care Resume Normal Activity?: Yes Activity: light activity Follow Up Orders Follow up Gen surgery 1 week For Congestive Heart Failure Reminder Report to your physician any weight gain of 5 pounds or more in one week. Melvin Ford MD Oct 11, 2018 10:43
[2018-10-11 12:00] VITALS: BP 114/76
--- NOTE | 2018-10-11 12:00 | Surgery Progress Note ---
Surgery Progress Note Subjective Symptoms: improved, pain absent, tolerating diet, voiding well, passing flatus , BM Objective Last 24 Hour Vital Signs Date Time Temp Pulse Resp B/P (MAP) Pulse Ox O2 Delivery O2 Flow Rate FiO2 10/11/18 08:00 98.7 59 20 112/67 (82) 94 10/11/18 07:57 Room Air 10/11/18 04:00 98.4 55 18 124/66 (85) 93 10/11/18 00:00 98.2 56 17 133/77 (95) 94 10/10/18 21:00 Room Air 10/10/18 20:00 98.0 53 18 140/84 (102) 94 10/10/18 17:30 Room Air 10/10/18 16:00 98.1 60 18 111/71 (84) 96 I&O Intake and Output 10/10/18 10/11/18 19:00 07:00 Intake Total 400 ml 480 ml Balance 400 ml 480 ml Intake Oral 400 ml 480 ml # Voids 5 3 # Bowel Movements 4 2 Dressing: dry Wound: clean Cardiovascular: RSR Respiratory: clear Abdomen: soft, flat, non-tender, present bowel sounds, non-distended Extremities: no tenderness, no cyanosis Laboratory Tests Test 10/11/18 05:45 White Blood Count 11.3 K/UL (4.8-10.8) H Red Blood Count 5.01 M/UL (4.70-6.10) Hemoglobin 15.6 G/DL (14.2-18.0) Hematocrit 46.3 % (42.0-52.0) Mean Corpuscular Volume 92 FL (80-99) Mean Corpuscular Hemoglobin 31.0 PG (27.0-31.0) Mean Corpuscular Hemoglobin Concent 33.6 G/DL (32.0-36.0) Red Cell Distribution Width 11.1 % (11.6-14.8) L Platelet Count 378 K/UL (150-450) Mean Platelet Volume 6.3 FL (6.5-10.1) L Neutrophils (%) (Auto) 76.6 % (45.0-75.0) H Lymphocytes (%) (Auto) 12.9 % (20.0-45.0) L Monocytes (%) (Auto) 8.0 % (1.0-10.0) Eosinophils (%) (Auto) 2.0 % (0.0-3.0) Basophils (%) (Auto) 0.5 % (0.0-2.0) Sodium Level 138 MMOL/L (136-145) Potassium Level 3.6 MMOL/L (3.5-5.1) Chloride Level 104 MMOL/L (98-107) Carbon Dioxide Level 24 MMOL/L (21-32) Anion Gap 11 mmol/L (5-15) Blood Urea Nitrogen 11 mg/dL (7-18) Creatinine 0.9 MG/DL (0.55-1.30) Estimat Glomerular Filtration Rate > 60 mL/min (>60) Glucose Level 104 MG/DL (74-106) Calcium Level 8.3 MG/DL (8.5-10.1) L Total Bilirubin 1.4 MG/DL (0.2-1.0) H Direct Bilirubin 0.3 MG/DL (0.0-0.3) Aspartate Amino Transf (AST/SGOT) 89 U/L (15-37) H Alanine Aminotransferase (ALT/SGPT) 136 U/L (12-78) H Alkaline Phosphatase 164 U/L (46-116) H Total Protein 7.0 G/DL (6.4-8.2) Albumin 2.7 G/DL (3.4-5.0) L Globulin 4.3 g/dL Albumin/Globulin Ratio 0.6 (1.0-2.7) L Lipase 605 U/L (73-393) H Plan Problems: (1) SBO (small bowel obstruction) Assessment & Plan: 32-year-old male status post lap scopic appendectomy for acute sinusitis with appendiceal necrosis and microperforation identified on pathology. Patient was doing well postoperatively and discharged in stable condition few days ago. Patient was covering at home but presents with abdominal pain nausea and bilious emesis. States he is having diarrhea. Since admission states pain is resolved and feels much better. States still having diarrhea and passing flatus. CT scan noted as below. Leukocytosis 22,000. Dehydration. No acute surgical intervention recommended. Abdominal examination demonstrates a soft minimally tender mild distended abdomen. Patient unlikely to have SBO given the above findings. Likely has a potential ileus. Will await return of bowel function. Okay to resume with clear liquid diet trial. IV antibiotics as per infectious disease. We will follow with serial examinations. Thank you for this consultation allowing me to participate in patient's care ileus resolving diarrhea pending c diff given on abx prior regular diet d/c planning Salazar Elizabeth Oct 11, 2018 12:00
--- NOTE | 2018-10-11 12:11 | CDS Physician Query ---
Clarification is required for compliance, coding accuracy, and to reflect severity of illness for this patient. Dear Dr. Melvin Chamorro Date: 10/11/2018 CDS: Maria Luisa Womack A diagnosis of Sepsis was made in the medical record on the [facility]. Upon review, it is difficult to determine whether this diagnosis has been ruled in, ruled out ,or is still being worked up. Please indicate below the status of the aforementioned diagnosis. [] Treated and resolve [] Presumed and treated [] Currently under treatment [] Still being worked-up [] Ruled out Present on Admission: [] Yes [] No [] Clinically Undetermined Physician signature Date Please also document in your Progress Notes and/or Discharge Summary and indicate if the condition was present on admission. MTDD
--- NOTE | 2018-10-11 12:19 | NUR ---
NURSE NOTES: DR LINK MADE AWARE OF WBC COUNT AND C DIFF RESULTS NEGATIVE. DR LINK WITH ORDERS FOR NO NEW PRESCRIPTIONS AND CLEARED FOR DISCHARGE. PT MADE AWARE. EDUCATED ON DISCHARGE PACKET. BELONGINGS REVIEWED AT BEDSIDE AND ALL ACCOUNTED. PT EDUCATED ON SIGNS AND SYMPTOMS FOR EMERGENCY HOSPITALIZATION AND PROVIDED WITH DR VALE'S OFFICE ADDRESS AND PHONE NUMBER FOR FOLLOW UP. PT VERBALIZED UNDERSTANDING. PT'S APPENDECTOMY SITE CLEAN AND DRY. NO DRAINAGE NOTED. PT EDUCATED TO KEEP SITE CLEAN AND DRY AND MONITOR FOR S/S INFECTION. PT VERBALIZED UNDERSTANDING. IV ACCESS DISCONTINUED. PT WAS DISCHARGED IN STABLE CONDITION.
--- NOTE | 2018-10-11 13:11 | Discharge Summary ---
Discharge Summary Discharge Summary _ DATE OF ADMISSION: 10/09/2018 DATE OF DISCHARGE: 10/11/2018 DISCHARGED BY: Dr. Ford REASON FOR ADMISSION: 31 years old male with past medical history of laparoscopic appendectomy due to acute appendicitis , recently discharged after surgery with antibiotic and pain medication, returned due to abdominal pain, nausea, vomiting and explosive watery diarrhea.r Patient reported, that he was not able to drink or eat for the last few days. Upon evaluation WBC 22.2, potassium 3.2. Glucose 151. Total bili 2.0 , direct bili 0.7, stable LFT. Urinalysis revealed possible UTI with pyuria, bacteria , +[address] of the abdomen and pelvis demonstrated suspicion of small bowel obstruction with transition in the right lower quadrant associated with moderate inflammation and surgical clips , indicative of appendectomy. Patient subsequently admitted to medical surgical floor for further management. CONSULTANTS: ID specialist Dr. Mcclain surgery Dr. Elizabeth [facility]: Patient initially was kept n.p.o. and started on aggressive IV hydration. Patient started on empiric antibiotics as per ID specialist recommendation. Pain management was addressed. Symptomatic treatment provided. Per surgeon no acute surgical intervention was recommended. Abdominal exam demonstrated minimally tender mildly distended abdomen. Per surgeon, patient unlikely had small bowel obstruction , given that he had diarrhea and was passing flatus, likely ileus. Patient was started on clear liquid diet . Patient was able to tolerate clear liquid diet and diet was further advanced as tolerated. Antibiotic continue as per ID specialist . Urine culture was negative , stool for C. difficile was negative. Leukocytosis trending down, and prior to discharge 11.3 . Patient remains afebrile. Total bilirubin from 2 down to 1.4, and direct bili from 0. 7 down to 0.3. Noted elevated AST 89, ALT 136. Lipase stable. GI prophylaxis provided. Potassium was replaced. Ileus was resolving. No acute surgical intervention was necessary. Patient tolerated diet. Patient clinically stabilized and was ready for discharge home FINAL DIAGNOSES: Abdominal pain Ileus Nausea, vomiting, diarrhea-resolved Dehydration and hypovolemia Leukocytosis- improved History of recent acute necrotic appendicitis hypokalemia DISCHARGE MEDICATIONS: See Medication Reconciliation list. DISCHARGE INSTRUCTIONS: Patient was discharged home. Follow up with primary care provider in one week. I have been assigned to dictate discharge summary for this account. I was not involved in the patient's management. Alyssa Padilla NP Oct 11, 2018 13:11
--- NOTE | 2018-10-12 11:28 | NUR ---
*-* INSURANCE *-* DISCHARGE SUMMARY HAVE BEEN FAXED TO: [facility]:JACOB Vega: [phone]
== END 2018-10-11 12:15 | disposition home or self-care (01) | DRG 872 ==
LOC: EMR 02:48 → EDBEDREQ 04:05 → 3E 06:12 → EDBEDREQ 07:43
DX: A41.9 Sepsis, unspecified organism (principal); K56.7 Ileus, unspecified; E87.6 Hypokalemia; E86.0 Dehydration; E86.1 Hypovolemia; R11.2 Nausea with vomiting, unspecified; R19.7 Diarrhea, unspecified
CPT/HCPCS: 36415; 74176; 80048; 80053; 81003; 82248; 83690; 85007; 85025; 85610; 85651; 85730; 86140; 87045; 87086; 87324; 96361; 96365; 96368; 96375; 99285; J2405